=== PATIENT | female | born 1935 | race Caucasian/White ===

== ENCOUNTER → 2017-04-25 | Outpatient (CLI) | payer MEDICARE, OTHER ==
[~2017-04-25] MED LIST: ASPIR 8181 MG PO; BENEFIBER PO; BENTYL 10 MG CA10 MG PO; CARDURA4 MG PO; CARVEDILOL6.25 MG PO; CYMBALTA30 MG PO; FOLIC ACID1 MG PO; FUROSEMIDE PO; GABAPENTIN 100100 MG PO; GINSENG100 MG PO; GLUCOPHAGE500 MG PO; HYDROCODON-ACE1 EAC7 PO; KLOR-CON 10 ER10 MEQ PO; KLOR-CON 1010 MEQ PO; LANTUS SUBQ; LANTUS100 UNIT/M SUBQ; LASIX 40 MG TAB40 M2 PO; LEVAQUIN 500 M500 M2 PO; LIPITOR 20 MG T20 M1 PO; MAG-OX 400 TAB400 M1 PO; MAG-OXIDE400 MG PO; METOLAZONE 2.52.5 M1 PO; MINOXIDIL2.5 MG PO; NOVOLOG100 UNIT/1 SUBQ; OMEPRAZOLE20 M2 PO; PACERONE 200 M200 M1 PO; PLAVIX 75 MG TA75 M1 PO; PRADAXA150 MG PO; PRENATAL VITAM1 EAC2 PO; PRENATAL VITAM1 EAC6 PO; VITAMINC500 PO; ZANTAC 150MG T150 MG PO
== END ==
LOC: M.RAD 08:36
DX: M85.88 Other specified disorders of bone density and structure, other site (principal); I73.9 Peripheral vascular disease, unspecified; I13.0 Hypertensive heart and chronic kidney disease with heart failure and stage 1 through stage 4 chronic kidney disease, or unspecified chronic kidney disease; E11.22 Type 2 diabetes mellitus with diabetic chronic kidney disease; I50.30 Unspecified diastolic (congestive) heart failure; N18.3 Chronic kidney disease, stage 3 (moderate); I21.4 Non-ST elevation (NSTEMI) myocardial infarction; I25.110 Atherosclerotic heart disease of native coronary artery with unstable angina pectoris; I48.2 Chronic atrial fibrillation; E66.9 Obesity, unspecified; E78.5 Hyperlipidemia, unspecified; K21.9 Gastro-esophageal reflux disease without esophagitis; K57.90 Diverticulosis of intestine, part unspecified, without perforation or abscess without bleeding; Z90.710 Acquired absence of both cervix and uterus; Z68.32 Body mass index [BMI] 32.0-32.9, adult

== ENCOUNTER → 2017-06-13 | Outpatient (CLI) | payer MEDICARE, OTHER | LOC: M.RAD 13:45 | DX: J40 Bronchitis, not specified as acute or chronic (principal); I25.10 Atherosclerotic heart disease of native coronary artery without angina pectoris; I12.9 Hypertensive chronic kidney disease with stage 1 through stage 4 chronic kidney disease, or unspecified chronic kidney disease; E11.22 Type 2 diabetes mellitus with diabetic chronic kidney disease; N18.3 Chronic kidney disease, stage 3 (moderate); I73.9 Peripheral vascular disease, unspecified ==

== ENCOUNTER → 2017-06-20 | Outpatient (CLI) | payer MEDICARE, OTHER ==
--- NOTE | 2017-06-20 10:14 | 2DMMODE ---
[place] [address] 2 D/M-MODE ECHOCARDIOGRAM Name: ROMIE APARICIO Room: [facility]#: [id number] Admission: 06/20/17 Attend Phys: Ganesh Joaquin, Discharge: Date of : 33 Date of Service: 06/20/17 1014 Report #: [id number] THIS REPORT FOR: //name// APPROVED REPORT Study performed: 06/20/2017 08:50:39 EXAM: Comprehensive 2D, Doppler, and color-flow Echocardiogram Patient Location: Out-Patient Status: routine BSA: 1.72 HR: 63 bpm BP: 122/55 mmHg Other Information Study Quality: Good Indications CAD 2D Dimensions LVEF(%): 70.00 (>50%) IVSd: 14.44 (7-11mm) LVOT Diam: 20.87 (18-24mm) LVDd: 34.72 mm PWd: 13.13 (7-11mm) Ascending Ao: 26.75 (22-36mm) LVDs: 21.32 (25-40mm) Aortic Root: 25.27 mm Stratton's LVEF: 70.00 % Volumes Left Atrial Volume (Systole) LA ESV Index: 27.40 mL/m2 Aortic Valve AoV Peak Shaun.: 1.46 m/s AO Peak Gr.: 8.53 mmHg LVOT Max P.04 mmHg AO Mean Gr.: 4.23 mmHg LVOT Mean P.50 mmHg LVOT Max V: 1.12 m/s AO V2 VTI: 30.56 cm LVOT Mean V: 0.72 m/s MIGUEL ANGEL (VTI): 3.14 cm2 LVOT V1 VTI: 28.09 cm Mitral Valve MV Decel. Time: 201.18 ms MV PHT: 58.34 ms [facility] [address] [place] [address] 2 D/M-MODE ECHOCARDIOGRAM Name: ROMIE APARICIO Room: [facility]#: [id number] Admission: 06/20/17 Attend Phys: Ganesh Joaquin, Discharge: Date of : 33 Date of Service: 06/20/17 1014 Report #: [id number] MVA (PHT): 3.77 cm2 TDI Medial E' Shaun.: 0.08 m/s Lateral E' Shaun.: 0.08 m/s Pulmonary Valve PV Peak Shaun.: 1.16 m/s PV Peak Gr.: 5.34 mmHg Tricuspid Valve TR Peak Gr.: 31.24 mmHg RVSP: 36.24 mmHg Left Ventricle The left ventricle is normal size. There is normal LV segmental wall motion. Mild concentric left ventricular hypertrophy. Left ventricular systolic function is normal. LVEF is 65-70%. The left ventricular diastolic function is normal. Right Ventricle The right ventricle is normal size. The right ventricular systolic function is normal. Atria Left atrium is mildly dilated. Right atrium is moderately dilated. Aortic Valve Aortic valve is mildly calcified. Mild aortic regurgitation. There is no aortic valvular stenosis. Mitral Valve There is mitral annular calcification. There is no mitral valve regurgitation noted. No evidence of mitral valve stenosis. Tricuspid Valve The tricuspid valve is normal in structure. Mild tricuspid regurgitation. Moderate pulmonary hypertension. The RVSP is 65-70 mmHg. Pulmonic Valve The pulmonary valve is normal in structure. Moderate pulmonic regurgitation. Great Vessels The aortic root is normal in size. IVC is dilated and collapses <50% [place] [address] 2 D/M-MODE ECHOCARDIOGRAM Name: ROMIE APARICIO [id number] Admission: 06/20/17 Attend Phys: Ganesh Joaquin, Discharge: Date of : 33 Date of Service: 06/20/17 1014 Report #: [id number] Pericardium Trace pericardial effusion. <Conclusion> The left ventricle is normal size. Mild concentric left ventricular hypertrophy. Left ventricular systolic function is normal. LVEF is 65-70%. The left ventricular diastolic function is normal. Left atrium is mildly dilated. Right atrium is moderately dilated. Aortic valve is mildly calcified. Mild aortic regurgitation. There is mitral annular calcification. Mild tricuspid regurgitation. Moderate pulmonary hypertension. The RVSP is 65-70 mmHg. Moderate pulmonic regurgitation. Trace pericardial effusion. <ELECTRONICALLY SIGNED> By: Ganesh Joaquin MD, FACC 06/20/17 1014 1014 1014 Ganesh Joaquin MD, FACC /INF
== END ==
LOC: M.CRD 08:19
DX: I08.3 Combined rheumatic disorders of mitral, aortic and tricuspid valves (principal); I25.10 Atherosclerotic heart disease of native coronary artery without angina pectoris; I27.20 Pulmonary hypertension, unspecified

== ENCOUNTER → 2017-07-24 | Outpatient (CLI) | payer MEDICARE, OTHER ==
[2017-07-24 10:05] LABS: ABSOLUTE BASOPHILS 0.1 thou/uL (0.0-0.2); ABSOLUTE EOSINOPHILS 0.2 thou/uL (0.0-0.7); ABSOLUTE LYMPHOCYTES 1.1 thou/uL (0.8-5.3); ABSOLUTE MONOCYTES 0.8 thou/uL (0.0-1.2); ABSOLUTE NEUTROPHILS 5.1 thou/uL (1.6-8.1); BASOPHILS 0.7 %; EOSINOPHILS 3.4 %; HEMATOCRIT 34.2 % (37.0-47.0); HEMOGLOBIN 11.5 gm/dL (12.0-15.0); LYMPHOCYTES 15.6 %; MCH 30.7 pg (26.0-34.0); MCHC 33.7 g/dL (28.0-37.0); MONOCYTES 10.5 %; MPV 9.5 fl. (7.2-11.1); NUCLEATED RBCS 0 /100WBC; PLATELET COUNT* 109 thou/uL (150-400); POLYS 69.8 %; RBC 3.76 mil/uL (4.20-5.00); RDW-CV 13.6 % (10.5-14.5); WBC 7.3 thou/uL (4.0-11.0)
[2017-07-24 10:26] LABS: ALBUMIN 3.5 g/dL (3.4-5.0); ALKALINE PHOSPHATASE 105 U/L (46-116); ANION GAP 8 mmol/L (7-16); BUN 54 mg/dL (7-18); CALCIUM 9.2 mg/dL (8.5-10.1); CHLORIDE 99 mmol/L (98-107); CHOLESTEROL 118 mg/dL (<200); CO2 31 mmol/L (21-32); CREATININE 1.3 mg/dL (0.6-1.3); GLUCOSE 127 mg/dL (70-99); HDL CHOLESTEROL 51 mg/dL (>40); LDL CHOLESTEROL 62 mg/dL (<100); PHOSPHORUS* 3.6 mg/dL (2.5-4.9); POTASSIUM 3.6 mmol/L (3.5-5.1); SGOT 28 U/L (15-37); SGPT 27 U/L (30-65); SODIUM 138 mmol/L (136-145); TC:HDL 2.3 Ratio (Not establshd); TOTAL BILIRUBIN 0.8 mg/dL (<0.1-1.0); TOTAL PROTEIN 7.2 g/dL (6.4-8.2); TRIGLYCERIDE 25 mg/dL (<150); VLDL 5 mg/dL (<40)
[2017-07-24 10:28] LABS: SERUM ASSESSMENT Clear
[2017-07-25 02:07] LABS: eGFR IF AFRICAN AMERICAN 46 (>59)
[2017-07-25 03:08] LABS: GLYCOHEMOGLOBIN (HGB A1C) 6.8 % (4.8-5.6)
[2017-07-25 06:06] LABS: PARATHYROID HORMONE 162 pg/mL (15-65)
== END ==
LOC: M.LAB 09:41
PROVIDERS: Internal Medicine Nephrology
DX: I12.9 Hypertensive chronic kidney disease with stage 1 through stage 4 chronic kidney disease, or unspecified chronic kidney disease (principal); E11.9 Type 2 diabetes mellitus without complications; I73.9 Peripheral vascular disease, unspecified; N18.3 Chronic kidney disease, stage 3 (moderate)

== ENCOUNTER → 2017-08-06 | Outpatient (CLI) | payer MEDICARE, OTHER ==
[2017-08-06 13:42] LABS: CALCIUM 9.8 mg/dL (8.5-10.1); CREATININE 1.4 mg/dL (0.6-1.3); POTASSIUM 3.5 mmol/L (3.5-5.1)
== END ==
LOC: M.LAB 13:05
PROVIDERS: Family Medicine
DX: N18.3 Chronic kidney disease, stage 3 (moderate) (principal)

== ENCOUNTER → 2017-12-13 | Outpatient (CLI) | payer MEDICARE, OTHER ==
[~2017-12-13] MED LIST changes: +MIRALAX17 GM PO
[2017-12-13 08:58] LABS: ABSOLUTE BASOPHILS 0.1 thou/uL (0.0-0.2); ABSOLUTE EOSINOPHILS 0.3 thou/uL (0.0-0.7); ABSOLUTE LYMPHOCYTES 1.1 thou/uL (0.8-5.3); ABSOLUTE MONOCYTES 0.8 thou/uL (0.0-1.2); ABSOLUTE NEUTROPHILS 5.6 thou/uL (1.6-8.1); BASOPHILS 0.9 %; EOSINOPHILS 4.1 %; LYMPHOCYTES 14.1 %; MCH 30.6 pg (26.0-34.0); MCHC 33.3 g/dL (28.0-37.0); MONOCYTES 9.9 %; MPV 9.4 fl. (7.2-11.1); NUCLEATED RBCS 0 /100WBC; PLATELET COUNT* 128 thou/uL (150-400); RBC 4.23 mil/uL (4.20-5.00); WBC 7.9 thou/uL (4.0-11.0)
[2017-12-13 09:18] LABS: CHOLESTEROL 117 mg/dL (<200); HDL CHOLESTEROL 41 mg/dL (>40); LDL CHOLESTEROL 68 mg/dL (<100); TC:HDL 2.9 Ratio (Not establshd); TRIGLYCERIDE 41 mg/dL (<150); VLDL 8 mg/dL (<40)
[2017-12-13 09:26] LABS: SERUM ASSESSMENT Clear
[2017-12-13 09:33] LABS: ALKALINE PHOSPHATASE 91 U/L (46-116); ANION GAP 4 mmol/L (7-16); BUN 47 mg/dL (7-18); CALCIUM 9.1 mg/dL (8.5-10.1); CHLORIDE 102 mmol/L (98-107); CO2 34 mmol/L (21-32); CREATININE 1.2 mg/dL (0.6-1.3); GLUCOSE 110 mg/dL (70-99); POTASSIUM 3.3 mmol/L (3.5-5.1); SGOT 23 U/L (15-37); SGPT 22 U/L (30-65); SODIUM 140 mmol/L (136-145); TOTAL BILIRUBIN 0.7 mg/dL (<0.1-1.0); TOTAL PROTEIN 6.5 g/dL (6.4-8.2)
[2017-12-14 03:07] LABS: GLYCOHEMOGLOBIN (HGB A1C) 7.1 % (4.8-5.6)
== END ==
LOC: M.LAB 08:39
PROVIDERS: Family Medicine
DX: I12.9 Hypertensive chronic kidney disease with stage 1 through stage 4 chronic kidney disease, or unspecified chronic kidney disease (principal); E11.22 Type 2 diabetes mellitus with diabetic chronic kidney disease; N18.3 Chronic kidney disease, stage 3 (moderate); I25.10 Atherosclerotic heart disease of native coronary artery without angina pectoris

== ENCOUNTER → 2018-01-03 | Outpatient (CLI) | payer MEDICARE, OTHER ==
[2018-01-03 15:07] LABS: ABSOLUTE BASOPHILS 0.1 thou/uL (0.0-0.2); ABSOLUTE EOSINOPHILS 0.2 thou/uL (0.0-0.7); ABSOLUTE LYMPHOCYTES 1.2 thou/uL (0.8-5.3); ABSOLUTE MONOCYTES 0.6 thou/uL (0.0-1.2); ABSOLUTE NEUTROPHILS 4.3 thou/uL (1.6-8.1); EOSINOPHILS 3.5 %; HEMATOCRIT 37.2 % (37.0-47.0); HEMOGLOBIN 12.5 gm/dL (12.0-15.0); LYMPHOCYTES 18.9 %; MCH 30.6 pg (26.0-34.0); MCHC 33.5 g/dL (28.0-37.0); MCV 91.5 fL (80.0-100.0); MONOCYTES 9.7 %; MPV 9.5 fl. (7.2-11.1); NUCLEATED RBCS 0 /100WBC; PLATELET COUNT* 138 thou/uL (150-400); POLYS 66.9 %; RBC 4.07 mil/uL (4.20-5.00); RDW-CV 13.1 % (10.5-14.5); WBC 6.4 thou/uL (4.0-11.0)
[2018-01-03 15:20] LABS: ALBUMIN 3.2 g/dL (3.4-5.0); CALCIUM 9.6 mg/dL (8.5-10.1); CREATININE 1.2 mg/dL (0.6-1.3); PHOSPHORUS* 3.3 mg/dL (2.5-4.9); POTASSIUM 3.6 mmol/L (3.5-5.1)
[2018-01-04 05:11] LABS: eGFR IF AFRICAN AMERICAN 56 (>59)
[2018-01-04 08:08] LABS: PARATHYROID HORMONE 137 pg/mL (15-65)
== END ==
LOC: M.LAB 14:47
PROVIDERS: Internal Medicine Nephrology
DX: E11.22 Type 2 diabetes mellitus with diabetic chronic kidney disease (principal); N18.3 Chronic kidney disease, stage 3 (moderate); I48.2 Chronic atrial fibrillation; K57.90 Diverticulosis of intestine, part unspecified, without perforation or abscess without bleeding; I50.9 Heart failure, unspecified; Z90.710 Acquired absence of both cervix and uterus

== ENCOUNTER 2018-03-12 12:30 | Inpatient (IN) | payer MEDICARE, OTHER ==
[~2018-03-12] VITALS: Ht 154.9 cm; Wt 80.3 kg
[~2018-03-12 12:30] MED LIST changes: -LASIX 40 MG TAB40 M2 PO; +LASIX 80 MG TAB80 MG PO; -MIRALAX17 GM PO
[2018-03-12 12:41] VITALS: BP 91/31
--- NOTE | 2018-03-12 12:47 | NUR ---
PT LIVES WITH DAUGHTER, SON IN LAW DROPPED PT OFF
[2018-03-12 13:16] LABS: HEMOGLOBIN 11.7 gm/dL (12.0-15.0); MCH 29.9 pg (26.0-34.0); MCHC 33.4 g/dL (28.0-37.0); MCV 89.6 fL (80.0-100.0); MPV 8.5 fl. (7.2-11.1); NUCLEATED RBCS 0 /100WBC; PLATELET COUNT* 240 thou/uL (150-400); RBC 3.91 mil/uL (4.20-5.00); RDW-CV 13.5 % (10.5-14.5); WBC 9.9 thou/uL (4.0-11.0)
[2018-03-12 13:21] LABS: ANION GAP 7 mmol/L (7-16); BUN 54 mg/dL (7-18); CALCIUM 8.6 mg/dL (8.5-10.1); CHLORIDE 92 mmol/L (98-107); CO2 29 mmol/L (21-32); CREATININE 1.5 mg/dL (0.6-1.3); GLUCOSE 189 mg/dL (70-99); POTASSIUM 3.5 mmol/L (3.5-5.1); SODIUM 128 mmol/L (136-145)
[2018-03-12 13:26] LABS: APTT 28.3 Seconds (25.0-31.3); INR 1.1; PROTIME 11.7 Seconds (9.20-11.50)
[2018-03-12 13:29] LABS: BE 2.5 mmol/L (-2 to +3); HCO3 26.8 mmol/L (22.0-26.0); PCO2 40.5 mmHg (35.0-45.0); PO2 71.2 mmHg (75.0-100.0); pH 7.439 (7.340-7.450)
[2018-03-12 13:32] LABS: ALBUMIN 2.2 g/dL (3.4-5.0); ALKALINE PHOSPHATASE 97 U/L (46-116); NT-PRO BRAIN NAT PEPTIDE 11341 pg/mL (<300); SGOT 28 U/L (15-37); SGPT 22 U/L (30-65); TOTAL BILIRUBIN 0.4 mg/dL (<0.1-1.0); TOTAL PROTEIN 5.9 g/dL (6.4-8.2); TROPONIN-I LEVEL <0.06 ng/mL (<0.06)
[2018-03-12 13:55] LABS: ABSOLUTE LYMPHOCYTES 0.7 thou/uL (0.8-5.3); ABSOLUTE MONOCYTES 0.9 thou/uL (0.0-1.2); ABSOLUTE NEUTROPHILS 8.3 thou/uL (1.6-8.1); PLATELET ESTIMATE ADEQUATE
[2018-03-12 16:02] VITALS: BP 134/48
[2018-03-12 16:15] VITALS: BP 163/61
--- NOTE | 2018-03-12 16:27 | EKG ---
[place] [address] ELECTROCARDIOGRAM REPORT Name: ROMIE APARICIO Room: [address] ADM IN M.R.#: [id number] Admission: 03/12/18 Attend Phys: Giovana Kim Discharge: Date of : 33 Report #: [id number] THIS REPORT FOR: //name// [facility] ED Test Date: 2018-03-12 Test Time: 12:58:44 Pat Name: ROMIE APARICIO Department: Room: [facility] Gender: F Zinc Miner: SHAYY : 1935 Requested By: Devonte Montano Order Number: [id number] MD: Ganesh Joauqin Measurements Intervals [place] Rate: 49 P: AL: QRS: 116 QRSD: 107 T: 143 QT: 537 QTc: 485 Interpretive Statements Atrial fibrillation Right ventricular hypertrophy Abnormal T, consider ischemia, lateral leads Compared to ECG 01/17/2017 12:10:53 T-wave abnormality now present Possible ischemia now present Electronically Signed On 03-12-2018 16:27:23 GLAZIER APPRENTICE by Ganesh Joaquin [email or web address] <ELECTRONICALLY SIGNED> By: Ganesh Joaquin MD, FACC 03/12/18 1627 1258 1258 Ganesh Joaquin MD, FACC /EPI
--- NOTE | 2018-03-12 18:03 | NUR ---
PT ADMITTED TO UNIT AROUND 1630 PT IS ALERT AND ORIENTED X 4 PT DENIES PAIN OR SOA ON 2L/NC, PT IS UP WITH ASSIST X 1 PT IS NOT A FALL RISK WILL CALL APPROPRIATELY FOR ASSISTANCE DUE TO WEAKNESS CARDIOLOGY CONSULTED PT HAS BILAT 3+ EDEMA LOWER EXTREMITIES PT STATES " I AHVE GAINED 12 POUNDS IN 10 DAYS" PT GIVEN LASIX IN ER CARDIOLOGY ORDERED 2000ML FLUID RESTRICTION ON PT, PT IS AFIB ON THE MONITOR, WILL CONTINUE TO MONITOR
[2018-03-12 18:05] LABS: CALCIUM 8.9 mg/dL (8.5-10.1); CREATININE 1.4 mg/dL (0.6-1.3); MAGNESIUM 1.8 mg/dL (1.8-2.4); POTASSIUM 3.3 mmol/L (3.5-5.1)
[2018-03-12 20:00] VITALS: BP 159/57
[2018-03-12 23:44] VITALS: BP 131/56
[2018-03-12 23:47] VITALS: BP 96/41
--- NOTE | 2018-03-13 03:15 | NUR ---
PT ALERT ORIENTED. O2 AT 2 NC. UP TO BR WITH ONE PERSON STAND BY ASSIST. TELEMETRY SHOWS SR. DENIES PAIN. PT C/O ACID REFLUX. TUMS ORDERED AND PANTOPRAZOLE ORDERED. WILL CONTINUE TO MONITOR.
[2018-03-13 04:00] VITALS: BP 113/48
[2018-03-13 04:40] LABS: CALCIUM 8.7 mg/dL (8.5-10.1); CREATININE 1.4 mg/dL (0.6-1.3); POTASSIUM 3.6 mmol/L (3.5-5.1); TOTAL BILIRUBIN 0.4 mg/dL (<0.1-1.0); TOTAL PROTEIN 5.5 g/dL (6.4-8.2)
[2018-03-13 08:00] VITALS: BP 102/43
[2018-03-13 11:43] VITALS: BP 124/43
--- NOTE | 2018-03-13 11:46 | NUR ---
MET WITH PT TO DISCUSS HOME SITUATION/DC PLANNING. PT LIVES WITH DTR AND HER FAMILY. STATES THEY RECENTLY BUILT A NEW HOUSE AND ARE IN THE PROCESS OF MOVING THERE. PT IS FAIRLY INDEPENDENT AT HOME. HAS NEW RAISED TOILET AND SHOWER BENCH IN NEW HOME. SHE LIVES IN THE 'UPSTAIRS'. DTR HAS IN HOME DAYCARE. CHERELLE WORKS SHIFT WORK. PT STATES SHE IS NORMALLY ABLE TO DO SHOPPING WEEKLY WITH DTR AND THE COOKING, VOICED CONCERN ABOUT MANAGING THOSE NOW WITH CHANGES IN DIET. PT HAS HAD HH WITH [facility] IN THE PAST AND WOULD LIKE TO USE THEM AGAIN. VOICED THAT SHE HAS BEEN STRUGGLING WITH WEAKNESS AND FATIGUE. SARA/JOSEPHINE IS HER DPOA. WILL FOLLOW
[2018-03-13 16:07] VITALS: BP 117/52
--- NOTE | 2018-03-13 17:45 | NUR ---
PT CARE ASSUMED AFTER REPORT. ASSESSMENT COMPLETE. AFIB ON MONITOR. PT WITH + BC, GRAM+ COCCI. DR OVALLE NOTIFIED. VANC GIVEN PER ORDER. SSI INITIATED PER ORDER. PT UP WITH STB ASSIST TO BATHROOM. DENIES PAIN. PARTIALLY PROGRESSING TOWARDS GOALS.
[2018-03-13 20:00] VITALS: BP 110/74
[2018-03-14] VITALS: BP 119/35
[2018-03-14 04:00] VITALS: BP 119/42
--- NOTE | 2018-03-14 05:47 | NUR ---
ASSUMED CARE OF PT AFTER REPORT AT 1930. PT A&OX4. VSS. PHYSICAL ASSESSMENT COMPLETED AND CHARTED. PT ON O2 AT 2L WITH 95% O2 SAT. PT TRACING AFIB ON TELE. PT UP STANDBY TO RESTROOM. DENIES ANY PAIN OR DISCOMFORT. MAINTAINED ON FLUID RESTRICTION. COMMUNICATES UNDERSTANDING. CALL LIGHT WITHIN REACH.
[2018-03-14 07:26] LABS: CALCIUM 8.7 mg/dL (8.5-10.1); CREATININE 1.4 mg/dL (0.6-1.3); MAGNESIUM 1.8 mg/dL (1.8-2.4); POTASSIUM 3.3 mmol/L (3.5-5.1)
[2018-03-14 07:54] VITALS: BP 119/41
--- NOTE | 2018-03-14 09:19 | NUR ---
ASSUMED CARE OF PT THIS AM AROUND 0715- BLUEPRINTING MACHINE OPERATOR IN PLACE ORDERED, TRACING A-FIB- UPON ASSESSMENT PT NOTED TO BE RESTING IN BED- PT A&O X4- CONTINENT OF BOWEL AND BLADDER- LIMITED ASSIST X1 WITH TRANSFERS- LCTA, RESP EVEN AND [id number] DRY COUGH REPORTED- VSS, O2 SAT 95% ON 2L VIA NC-ABDOMEN SOFT/ROUND/NON-TENDER, BS X 4 QUADS- LAST BM REPORTED 03/13/18- GOOD PO INTAKE NOTED THIS AM WITH BREAKFAST, BS MONITORED ORDERED- IV NOTED TO LEFT WRIST INTACT AND SL- 2+ BLE EDEMA NOTED. LEG ELEVATION IN PLACE- BLOOD CULTURES REMAIN NEGATIVE- PT DENIES ANY C/O PAIN/DISCOMFORT THIS AM- CALL LIGHT AND PERSONAL BELONGINGS WITH IN REACH- HOURLY ROUNDS IN PLACE R/T SAFETY/NEEDS- ALL NEEDS MET AT THIS TIME-WCTM
[2018-03-14 11:41] VITALS: BP 126/40
[2018-03-14 16:04] VITALS: BP 113/45
--- NOTE | 2018-03-14 16:37 | CON ---
[address] [address] CONSULTATION Name: ROMIE APARICIO Room: [address] IN M.R.#: [id number] Admission: 03/12/18 Attend Phys: Giovana Kim Discharge: Date of : 33 Report #: [id number] THIS REPORT FOR: //name// CC: Sagar Clemens DO Azul Pearson TYPE OF REPORT: Cardiology consultation. INDICATION: Eeorq-ly-fcajmnt diastolic heart failure. HISTORY OF PRESENT ILLNESS: The patient is a very pleasant 82-year-old white female who is well known to myself. She has chronic atrial fibrillation. She is not anticoagulated due to bleeding risk. Lately, her heart rate appears to have been slow. She is on a low dose of carvedilol, which had been for rate control in the past. She has had hypertension that has been difficult to control and is on multiple agents presently with adequate control presently. She has a history of coronary artery disease with percutaneous coronary intervention of the right coronary artery in October 2015. At that time, she had nonocclusive stenoses noted elsewhere. She has preserved left ventricular systolic function. She has moderate nonocclusive carotid vascular disease without sign or symptom of TIA or stroke. She has had increasing volume overload over the past 2-3 weeks to the point where she is not having significant dyspnea on exertion. She is not having orthopnea. She denies chest pain. She has significant peripheral edema. PAST MEDICAL HISTORY: 1. Chronic diastolic heart failure. 2. Chronic atrial fibrillation. 3. Coronary artery disease with percutaneous coronary intervention of the right coronary artery in October 2015. 4. Carotid vascular disease. 5. Essential hypertension. 6. Hyperlipidemia. 7. Moderate pulmonary hypertension. PAST SURGICAL HISTORY: 1. Cataract extraction. 2. Esophageal dilatation. 3. Femoral bypass procedure. 4. [place] [address] CONSULTATION Name: ROMIE APARICIO Room: [address]#: [id number] Admission: 03/12/18 Attend Phys: Giovana Kim Discharge: Date of : 33 Report #: [id number] FAMILY HISTORY: The patient's mother and father both had heart disease. SOCIAL HISTORY: The patient quit smoking over 40 years ago. She does not drink alcohol. ALLERGIES: SULFA. CURRENT MEDICATIONS: Aspirin 81 mg daily, atorvastatin 20 mg daily, carvedilol 6.25 mg b.i.d., Plavix 75 mg daily, Cardura 4 mg daily in the evening, Cymbalta 30 mg daily, folate 1 mg daily, furosemide 120 mg daily, gabapentin 100 mg at bedtime, insulin 3 units subcutaneously a.c. and at bedtime, Lantus 12 units subcutaneously at bedtime, magnesium oxide 400 mg daily, metolazone 2.5 mg 3 times weekly, minoxidil 2.5 mg t.i.d., potassium chloride 10 mEq 2 tablets daily, vitamin 2 tablets daily and Zantac 150 mg b.i.d. REVIEW OF SYSTEMS: The patient reports dyspnea on exertion, lower extremity edema, type 2 diabetes mellitus, remote history of blood in the stool, urinary tract infection, history of anemia, mild arthritis and reading glasses without acute visual loss. Otherwise, 14-point review of systems was unremarkable. PHYSICAL EXAMINATION: VITAL SIGNS: Stable. Blood pressure 163/61 and pulse currently 49. GENERAL: This is a pleasant lady, in no distress. Mood and affect appropriate. HEENT: Extraocular muscles intact. Mucous membranes are moist. NECK: Examination of the neck shows no jugular venous distention. I do not appreciate carotid bruit. CHEST: Reveals clear lung sargent. CARDIOVASCULAR: Reveals an irregularly irregular rhythm. Rate is somewhat slow. I do not appreciate gallop or murmur. ABDOMEN: Reveals normal bowel sounds. The abdomen is soft and nontender. EXTREMITIES: Shows 2-3+ pitting edema to above the knees bilaterally. SKIN: Dry. RADIOLOGICAL DATA: A 12-lead EKG shows atrial fibrillation with a slow ventricular response rate. There is nonspecific intraventricular conduction delay. No acute ST or T-wave abnormalities are noted. Chest x-ray shows CHF, cardiomegaly and interstitial pulmonary edema. LABORATORY DATA: Labs are reviewed. Sodium 128, potassium 3.5, chloride 92, bicarbonate 29, BUN 54, creatinine 1.5 and serum glucose 189. LFTs within normal limits. Troponin less than 0.06. NT-pro-BNP 11,341. Recent cholesterol profile shows total cholesterol 117, triglycerides 41, HDL 41 and LDL 68. Coags are within normal limits. White blood cell count 9.9; hemoglobin 11.7 and platelet count 240,000. [facility] [address] [place] [address] CONSULTATION Name: ROMIE APARICIO Room: M.228-P ADM IN M.R.#: [id number] Admission: 03/12/18 Attend Phys: Giovana Kim Discharge: Date of : 34 Report #: [id number] IMPRESSION AND RECOMMENDATIONS: 1. Oyyso-es-ppfbast heart failure, likely diastolic. Continue diuresis with IV Lasix and metolazone daily. We will follow up labs in a.m. 2. Atrial fibrillation, rate is too slow presently. Discontinuing carvedilol. May need to increase minoxidil for better blood pressure control. She is not anticoagulated due to bleeding problems in the past. 3. Hypertension. Blood pressure moderately elevated at present. We will make adjustments as needed while in hospital. 4. Diabetes per primary physician. 5. Hyperlipidemia, at goal on current statin dose. 6. Coronary artery disease, presently stable. She does not have any symptoms to suggest angina or acute coronary syndrome. 7. Acute renal insufficiency with chronic renal insufficiency. We will need to follow renal function closely while we diurese. <ELECTRONICALLY SIGNED> By: Ganesh Joaquin MD, FACC 03/14/18 1637 1715 [id number] Joaquin MD, FACC /nt
--- NOTE | 2018-03-14 16:55 | NUR ---
PT CURRENTLY RESTING IN BED- GLOBAL PROFESSIONAL IN PLACE ORDERED, TRACING A-FIB- PT NOTED TO BE WORKING WITH THERAPIES PRESCIBED- UP TO CHAIR WITH MEALS, TOLERATING WELL- IV TO LEFT WRIST INTACT AND SL- IV VANC GIVEN THIS SHIFT PRESCIBED- K+ REPLACED THIS SHIFT PER PROTOCOL WITH REDRAW SCHEDUKLED FOR 183- HERE TO ASSESS THIS SHIFT WITH ORDERS NOTED TO INCREASE LASIX 120MG BID- FELICITY HOSE PLACED ORDERED TO BLE- GOOD PO INTAKE NOTED THIS SHIFT WITH MEALS- DENIES ANY C/O PAIN/DISCOMFORT AT THIS TIME- CALL LIGHT AND PERSONAL BELONGINGS WITH IN REACH- MAKES NEEDS KNOWN- ALL NEEDS MET AT THIS TIME-WCTM
[2018-03-14] MEDS ORDERED: MIRALAX17 GM PO (19:36)
[2018-03-14 20:00] VITALS: BP 100/30
[2018-03-15] VITALS (7 sets, daily range): BP systolic 115–134; BP diastolic 27–45
[2018-03-15 05:01] LABS: HEMATOCRIT 31.2 % (37.0-47.0); HEMOGLOBIN 10.5 gm/dL (12.0-15.0); MCHC 33.5 g/dL (28.0-37.0); MCV 89.8 fL (80.0-100.0); MPV 8.7 fl. (7.2-11.1); RBC 3.48 mil/uL (4.20-5.00); RDW-CV 13.8 % (10.5-14.5); WBC 8.6 thou/uL (4.0-11.0)
--- NOTE | 2018-03-15 05:06 | NUR ---
ASSUMED CARE OF PT AFTER REPORT AT 1930. PT A&OX4. VSS. PHYSICAL ASSESSMENT COMPLETED AND CHARTED. PT ON RA WITH 94% O2 SAT. PT TRACING AFIB/PVC ON TELE. PT UP STANDBY ASSIST TO RESTROOM. DENIES ANY PAIN OR DISCOMFORT. HOURLY ROUNDING OBSERVED. HS REST & SAFETY GOALS ACHIEVED. CALL LIGHT WITHIN REACH. BED IN LOW POSITION. BED ALARM ON.
[2018-03-15 05:22] LABS: CALCIUM 8.7 mg/dL (8.5-10.1); CREATININE 1.3 mg/dL (0.6-1.3); MAGNESIUM 1.7 mg/dL (1.8-2.4); POTASSIUM 3.6 mmol/L (3.5-5.1)
--- NOTE | 2018-03-15 09:11 | NUR ---
RECEIVED REPORT FROM JAY AND ASSUMED CARE OF PT @ 3290.PT IS A/O X4,VSS,TRACING AFIB ON THE MONITOR.ASSESSMENT CHARTED.IV PATENT AND SALINE LOCKED.PT IS CALM AND COOPERATIVE WITH NO C/O PAIN AT TIME OF ASSESSMENT.PT IS UP WITH SBA TO BATHROOM. PT LEFT RESTING IN RECLINER WITH CALL LIGHT AND FALL PRECAUTIONS IN PLACE.WILL CONTINUE TO MONITOR.
--- NOTE | 2018-03-15 13:43 | NUR ---
CONTINUE TO FOLLOW, MET WITH PT. SHE STILL WOULD LIKE TO HAVE HH AT [place], FEELS IT'LL BE HELPFUL WITH HER CHF AND FOR DIET REINFORCEMENT. PT HOPES TO GO HOME OVER WEEKEND. DISCUSSED AGENCIES WITH HER AGAIN AND SHE HAS NO PREFERENCE, CHOSE [facility] THIS TIME. CALLED AND FAXED INITIAL REFERRAL TO [facility]. THEY WILL NEED CALLED AND ORDERS FAXED AT [facility] [phone] FAX [phone]
--- NOTE | 2018-03-15 17:03 | NUR ---
VSS,CARDIAC MONITORING IN PLACE WITH NO CHANGES.PT ON ROOM AIR.PT PROGRESSING TOWARDS GOALS.NO C/O PAIN.IV PATENT AND SALINE LOCKED.NEW FELICITY VILLALOBOS ORDERED AND PUT ON PT.PT AMBULATED IN HALLWAY AND WORKED ON STAIRS WITH PHYSICAL THERAPY.HOURLY ROUNDING COMPLETED FOR PT SAFETY.CALL LIGHT AND FALL PRECAUTIONS IN PLACE.WILL CONTINUE TO MONITOR FOR DURATION OF SHIFT.
[2018-03-16] VITALS: BP 124/79
[2018-03-16 04:00] VITALS: BP 127/40
--- NOTE | 2018-03-16 04:40 | NUR ---
PT ON ROOM AIR AND RUNNING AFLUTTER AND AFIB WITH PVC ON CASE MANAGEMENT DIRECTOR. PT FELICITY HOSE REMOVED TO SLEEP. PT ON 2000 ML FLUID RESTRICTION. PT AXO X4 AND UP STANDBY. NO C/O OF PAIN AT THIS TIME. HOURLY ROUNDING COMPLETED. WILL CONTINUE TO MONITOR.
[2018-03-16 05:06] LABS: CALCIUM 8.9 mg/dL (8.5-10.1); CREATININE 1.3 mg/dL (0.6-1.3); MAGNESIUM 1.7 mg/dL (1.8-2.4); POTASSIUM 3.2 mmol/L (3.5-5.1)
[2018-03-16 08:00] VITALS: BP 112/41
--- NOTE | 2018-03-16 10:23 | NUR ---
RECEIVED REPORT FROM JERMAINE AND ASSUMED CARE OF PT @ 3801.PT IS A/O X4,BP SLIGHTLY LOW @ 112/41.TRACING AFIB WITH PVC ON THE MONITOR.ASSESSMENT CHARTED.PT IS CALM AND COOPERATIVE WITH NO C/O PAIN.PT LEFT RESTING IN BED WITH CALL LIGHT AND FALL PRECAUTIONS IN PLACE.WILL CONTINUE TO MONITOR.
[2018-03-16 12:00] VITALS: BP 161/55
[2018-03-16 16:00] VITALS: BP 137/47
--- NOTE | 2018-03-16 17:34 | NUR ---
VSS,CARDIAC MONITORING IN PLACE WITH NO CHANGES.PT REMAINS ON ROOM AIR.NO C/O PAIN.ELECTROLYTE REPLACEMENT PROTOCOL FOLLOWED.NEW IV INSERTED.IV PATENT AND SALINE LOCKED.IV ANTIBIOTICS GIVEN.PT PROGRESSING TOWARDS GOALS.PT INFORMED OF PLAN OF CARE AND COMMUNICATES UNDERSTANDING.PT WORKED WITH PHYSICAL THERAPY AND AMBULATED IN HALLWAY.HOURLY ROUNDING COMPELTED FOR PT SAFETY.CALL LIGHT AND FALL PRECAUTIONS IN PLACE.WILL CONTINUE TO MONITOR FOR DURATION OF SHIFT.
[2018-03-16 20:00] VITALS: BP 92/27
[2018-03-17] VITALS: BP 120/39
[2018-03-17 04:00] VITALS: BP 125/36
--- NOTE | 2018-03-17 04:31 | NUR ---
ASSUMED CARE OF PT AFTER REPORT AT 1930. PT A&OX4. VSS. PHYSICAL ASSESSMENT COMPLETED AND CHARTED. PT ON RA WITH 96% O2 SAT. PT TRACING AFIB PVC ON TELE. PT UPSTANDBY TO RESTROOM. PT COMPLAINED OF DRY EYES- DR GARCIA INFORMED WITH NEW ORDER. PRESSURE INJURY ON RIGHT BUTTOCKS NOTED. CLEANED AND OPTIFOAM DRESSING APPLIED. PHOTOGRAPH TAKEN. PT RESTED WELL ON BED. HOURLY ROUNDING OBSERVED. CALL LIGHT WITHIN REACH. BED IN LOW POSITION. BED ALARM ON.
[2018-03-17 04:47] LABS: CALCIUM 8.5 mg/dL (8.5-10.1); CREATININE 1.3 mg/dL (0.6-1.3); MAGNESIUM 1.6 mg/dL (1.8-2.4); POTASSIUM 3.3 mmol/L (3.5-5.1)
[2018-03-17 08:07] VITALS: BP 119/31
[2018-03-17 12:00] VITALS: BP 119/43
--- NOTE | 2018-03-17 13:10 | NUR ---
RECEIVED REPORT FROM JAY AND ASSUMED CARE OF PT @ 2052.PT IS A/O X4,VSS,TRACING AFIB ON THE MONITOR.ASSESSMENT CHARTED.IV PATENT AND SALINE LOCKED.THIGH HIGH FELICITY HOSE IN PLACE.PT IS CALM AND COOPERATIVE WITH NO C/O PAIN AT TIME OF ASSESSMENT.PT IS UP SBA TO BATHROOM.PT LEFT RESTING IN RECLINER WITH CALL LIGHT AND FALL PRECAUTIONS IN PLACE.WILL CONTINUE TO MONITOR.
[2018-03-17 16:00] VITALS: BP 127/48
--- NOTE | 2018-03-17 17:58 | NUR ---
VSS,CARDIAC MONITORING IN PLACE WITH NO CHANGES,PT REMAINS ON ROOMA IR.PROGRESSING TOWARDS GOALS.NO C/O PAIN.PICTURES TAKEN OF RIGHT BUTTOCK.THIGH HIGH FELICITY HOSE IN PLACE.IV PATENT AND SALINE LOCKED.PT INFORMED OF PLAN OF CARE AND COMMUNICATES UNDERSTANDING. PT AMBULATED IN ROOM WITH SBA TO BATHROOM.HOURLY ROUNDING COMPLETED FOR PT SAFETY.CALL LIGHT AND FALL PRECAUTIONS IN PLACE.WILL CONTINUE TO MONITOR FOR DURATION OF SHIFT.
[2018-03-17 20:00] VITALS: BP 117/34
[2018-03-17] MEDS ORDERED: PANTOPRAZOLE SO40 M1 PO (20:21)
[2018-03-18 00:10] VITALS: BP 92/36
[2018-03-18 04:00] VITALS: BP 124/42
[2018-03-18 05:03] LABS: CALCIUM 8.8 mg/dL (8.5-10.1); CREATININE 1.3 mg/dL (0.6-1.3); MAGNESIUM 1.6 mg/dL (1.8-2.4); POTASSIUM 3.4 mmol/L (3.5-5.1)
--- NOTE | 2018-03-18 05:26 | NUR ---
ASSUMED CARE OF PT AFTER REPORT AT 1930. PT A&OX4. VSS. PHYSICAL ASSESSMENT COMPLETED AND CHARTED. PT ON RA WITH 93% O2 SAT. PT TRACING AFIB PVC ON TELE. PT UPSTANDBY TO RESTROOM. DENIES ANY PAIN OR DISCOMFORT. PT RESTED WELL ON BED. HOURLY ROUNDING OBSERVED. CALL LIGHT WITHIN REACH. BED IN LOW POSITION. BED ALARM ON.
[2018-03-18 07:59] VITALS: BP 119/32
--- NOTE | 2018-03-18 08:15 | NUR ---
RECEIVED REPORT. ASSUMED CARE OF PT AT 0730. VSS. CARDIAC MONITORING IN PLACE AFIB. AM ASSESSMENT AND VITALS COMPLETED CHARTED. PT ALERT AND ORIETNED. PT ON RA WITH O2 SAT AT 94% PT DENIES ANY PAIN OR DISCOMFORT THIS AM. PT IS SITTING UP IN CHAIR FOR BREAKFAST. DISCUSSED PLAN OF CARE WITH PT. PT COMMUNICATES UNDERSTANDING. CALL LIGHT IS WITHIN REACH. WILL CONTINUE TO MONITOR FOR DURATION OF SHIFT.
[2018-03-18] MEDS ORDERED: METOLAZONE 5 MG5 MG PO (09:29)
--- NOTE | 2018-03-18 11:44 | NUR ---
ORDERS NOTED FOR DC HOME WITH HH. MET WT PT, STILL WANTS TO USES [facility]. DENIES OTHER NEEDS. CALLED AND FAXED DC ORDERS TO [facility]. PT HAPPY TO BE GOING HOME
[2018-03-18 12:00] VITALS: BP 127/38
[2018-03-18 13:08] LABS: MAGNESIUM 1.6 mg/dL (1.8-2.4); POTASSIUM 3.3 mmol/L (3.5-5.1)
[2018-03-18] MEDS ORDERED: ZAROXOLYN 5MG TA5 MG PO (16:03)
--- NOTE | 2018-03-18 17:34 | NUR ---
DISCHARGE ORDERS RECEIVED AND PREPARED. IV AND CARDIAC MONTIORING DISCONTINUED. PT EDUCATED ON DISCHARGE INSTRCTUIONS. ALL QUESTIONS AND CONCERNS ANSWERED AT THIS TIME. PT GIVEN COPY OF DISCHARGE PAPERWORK AND NEW SCRIPTS. ALL PT'S BELONGINGS GATEHRED AND SENT HOME WITH PT. PT ESCORTED OFF UNIT WITH NURSING STAFF. PT LEFT IN PRIVATE VEHICLE.
== END 2018-03-18 17:46 | disposition home health service (06) | DRG 291 ==
LOC: M.ERS 12:30 → M.2W 14:55 → M.TBA-ER 14:55 → M.2W 16:04
PROVIDERS: Family Medicine; Internal Medicine; Internal Medicine Cardiovascular Disease; ADMIT Internal Medicine
DX: I13.0 Hypertensive heart and chronic kidney disease with heart failure and stage 1 through stage 4 chronic kidney disease, or unspecified chronic kidney disease (principal); N17.0 Acute kidney failure with tubular necrosis; I50.43 Acute on chronic combined systolic (congestive) and diastolic (congestive) heart failure; E87.1 Hypo-osmolality and hyponatremia; E44.0 Moderate protein-calorie malnutrition; M19.90 Unspecified osteoarthritis, unspecified site; E87.6 Hypokalemia; R00.1 Bradycardia, unspecified; E11.22 Type 2 diabetes mellitus with diabetic chronic kidney disease; E66.9 Obesity, unspecified; T50.905A Adverse effect of unspecified drugs, medicaments and biological substances, initial encounter; N18.3 Chronic kidney disease, stage 3 (moderate); I25.10 Atherosclerotic heart disease of native coronary artery without angina pectoris; E78.5 Hyperlipidemia, unspecified; K57.90 Diverticulosis of intestine, part unspecified, without perforation or abscess without bleeding; I27.20 Pulmonary hypertension, unspecified; I48.2 Chronic atrial fibrillation; E11.51 Type 2 diabetes mellitus with diabetic peripheral angiopathy without gangrene; Z87.440 Personal history of urinary (tract) infections; Z90.710 Acquired absence of both cervix and uterus; Z98.49 Cataract extraction status, unspecified eye; Z79.84 Long term (current) use of oral hypoglycemic drugs; Z79.4 Long term (current) use of insulin; Z95.828 Presence of other vascular implants and grafts; Z79.01 Long term (current) use of anticoagulants; Z79.82 Long term (current) use of aspirin; Z88.2 Allergy status to sulfonamides; Z88.8 Allergy status to other drugs, medicaments and biological substances; Z82.49 Family history of ischemic heart disease and other diseases of the circulatory system; Z87.891 Personal history of nicotine dependence; Z95.5 Presence of coronary angioplasty implant and graft; Y92.89 Other specified places as the place of occurrence of the external cause; Z68.33 Body mass index [BMI] 33.0-33.9, adult

== ENCOUNTER → 2018-05-17 | Outpatient (CLI) | payer MEDICARE, OTHER ==
[~2018-05-17] MED LIST changes: +METOLAZONE 5 MG5 MG PO; +MIRALAX17 GM PO; +PANTOPRAZOLE SO40 M1 PO; +ZAROXOLYN 5MG TA5 MG PO
[2018-05-17 10:23] LABS: ABSOLUTE BASOPHILS 0.1 thou/uL (0.0-0.2); ABSOLUTE EOSINOPHILS 0.3 thou/uL (0.0-0.7); ABSOLUTE LYMPHOCYTES 1.2 thou/uL (0.8-5.3); ABSOLUTE MONOCYTES 0.5 thou/uL (0.0-1.2); ABSOLUTE NEUTROPHILS 3.4 thou/uL (1.6-8.1); BASOPHILS 1.1 %; EOSINOPHILS 5.8 %; HEMATOCRIT 34.7 % (37.0-47.0); HEMOGLOBIN 11.7 gm/dL (12.0-15.0); LYMPHOCYTES 21.5 %; MCH 30.4 pg (26.0-34.0); MCHC 33.6 g/dL (28.0-37.0); MCV 90.4 fL (80.0-100.0); MONOCYTES 9.8 %; MPV 8.9 fl. (7.2-11.1); NUCLEATED RBCS 0 /100WBC; PLATELET COUNT* 124 thou/uL (150-400); POLYS 61.8 %; RBC 3.84 mil/uL (4.20-5.00); RDW-CV 14.3 % (10.5-14.5); WBC 5.5 thou/uL (4.0-11.0)
[2018-05-17 10:42] LABS: ALBUMIN 3.7 g/dL (3.4-5.0); ALKALINE PHOSPHATASE 131 U/L (46-116); ANION GAP 5 mmol/L (7-16); BUN 42 mg/dL (7-18); CALCIUM 10.6 mg/dL (8.5-10.1); CHLORIDE 99 mmol/L (98-107); CO2 35 mmol/L (21-32); CREATININE 1.3 mg/dL (0.6-1.3); GLUCOSE 83 mg/dL (70-99); POTASSIUM 3.5 mmol/L (3.5-5.1); SGOT 26 U/L (15-37); SGPT 23 U/L (30-65); SODIUM 139 mmol/L (136-145); TOTAL BILIRUBIN 0.6 mg/dL (<0.1-1.0); TOTAL PROTEIN 8.3 g/dL (6.4-8.2)
[2018-05-17 12:04] LABS: CHOLESTEROL 138 mg/dL (<200); HDL CHOLESTEROL 41 mg/dL (>40); LDL CHOLESTEROL 81 mg/dL (<100); TC:HDL 3.4 Ratio (Not establshd); TRIGLYCERIDE 80 mg/dL (<150); VLDL 16 mg/dL (<40)
[2018-05-17 12:05] LABS: SERUM ASSESSMENT Moderate Lipemia
[2018-05-17 21:10] LABS: GLYCOHEMOGLOBIN (HGB A1C) 6.5 % (4.8-5.6)
== END ==
LOC: M.LAB 10:01
PROVIDERS: Family Medicine
DX: I12.9 Hypertensive chronic kidney disease with stage 1 through stage 4 chronic kidney disease, or unspecified chronic kidney disease (principal); E11.22 Type 2 diabetes mellitus with diabetic chronic kidney disease; N18.3 Chronic kidney disease, stage 3 (moderate); E11.59 Type 2 diabetes mellitus with other circulatory complications; I25.10 Atherosclerotic heart disease of native coronary artery without angina pectoris; D69.6 Thrombocytopenia, unspecified

== ENCOUNTER → 2018-07-10 | Outpatient (CLI) | payer MEDICARE, OTHER ==
[2018-07-10 09:38] LABS: ABSOLUTE EOSINOPHILS 0.3 thou/uL (0.0-0.7); ABSOLUTE LYMPHOCYTES 0.9 thou/uL (0.8-5.3); ABSOLUTE MONOCYTES 0.4 thou/uL (0.0-1.2); ABSOLUTE NEUTROPHILS 3.1 thou/uL (1.6-8.1); BASOPHILS 0.8 %; EOSINOPHILS 5.5 %; HEMATOCRIT 32.7 % (37.0-47.0); HEMOGLOBIN 11.2 gm/dL (12.0-15.0); LYMPHOCYTES 18.9 %; MCH 30.9 pg (26.0-34.0); MCHC 34.2 g/dL (28.0-37.0); MCV 90.4 fL (80.0-100.0); MONOCYTES 8.2 %; MPV 9.3 fl. (7.2-11.1); NUCLEATED RBCS 0 /100WBC; PLATELET COUNT* 119 thou/uL (150-400); POLYS 66.6 %; RBC 3.61 mil/uL (4.20-5.00); WBC 4.7 thou/uL (4.0-11.0)
[2018-07-10 10:05] LABS: ALBUMIN 3.6 g/dL (3.4-5.0); CALCIUM 9.7 mg/dL (8.5-10.1); CREATININE 1.5 mg/dL (0.6-1.3); PHOSPHORUS* 3.4 mg/dL (2.5-4.9); POTASSIUM 3.9 mmol/L (3.5-5.1)
[2018-07-10 10:12] LABS: CALCIUM 9.6 mg/dL (8.5-10.1); CREATININE 1.6 mg/dL (0.6-1.3); PHOSPHORUS* 3.4 mg/dL (2.5-4.9)
== END ==
LOC: M.LAB 09:12
PROVIDERS: Internal Medicine Nephrology
DX: E11.22 Type 2 diabetes mellitus with diabetic chronic kidney disease (principal); I12.9 Hypertensive chronic kidney disease with stage 1 through stage 4 chronic kidney disease, or unspecified chronic kidney disease; N18.3 Chronic kidney disease, stage 3 (moderate)

== ENCOUNTER → 2018-09-25 | Outpatient (CLI) | payer MEDICARE, OTHER | LOC: M.MRI 11:08 | DX: M47.26 Other spondylosis with radiculopathy, lumbar region (principal); M43.16 Spondylolisthesis, lumbar region ==

== ENCOUNTER → 2018-10-08 | Outpatient (CLI) | payer MEDICARE, OTHER ==
[2018-10-08 11:17] LABS: HEMATOCRIT 33.9 % (37.0-47.0); HEMOGLOBIN 11.5 gm/dL (12.0-15.0)
[2018-10-08 11:29] LABS: ALBUMIN 3.5 g/dL (3.4-5.0); CALCIUM 9.9 mg/dL (8.5-10.1); CREATININE 1.3 mg/dL (0.6-1.3); PHOSPHORUS* 3.6 mg/dL (2.5-4.9); POTASSIUM 3.6 mmol/L (3.5-5.1); TOTAL BILIRUBIN 0.5 mg/dL (<0.1-1.0); TOTAL PROTEIN 7.4 g/dL (6.4-8.2)
[2018-10-08 11:57] LABS: CREATININE 1.4 mg/dL (0.6-1.3); PHOSPHORUS* 3.7 mg/dL (2.5-4.9)
== END ==
LOC: M.LAB 10:57
PROVIDERS: Internal Medicine Nephrology
DX: I13.0 Hypertensive heart and chronic kidney disease with heart failure and stage 1 through stage 4 chronic kidney disease, or unspecified chronic kidney disease (principal); N18.3 Chronic kidney disease, stage 3 (moderate); I50.33 Acute on chronic diastolic (congestive) heart failure; N25.81 Secondary hyperparathyroidism of renal origin; I48.91 Unspecified atrial fibrillation; Z79.01 Long term (current) use of anticoagulants; E78.5 Hyperlipidemia, unspecified; Z90.710 Acquired absence of both cervix and uterus

== ENCOUNTER → 2018-11-21 | Outpatient (CLI) | payer MEDICARE, OTHER ==
[2018-11-21 10:19] LABS: CHOLESTEROL 149 mg/dL (<200); HDL CHOLESTEROL 46 mg/dL (>40); LDL CHOLESTEROL 91 mg/dL (<100); TC:HDL 3.2 Ratio (Not establshd); TRIGLYCERIDE 61 mg/dL (<150); VLDL 12 mg/dL (<40)
[2018-11-21 10:20] LABS: SERUM ASSESSMENT Clear
== END ==
LOC: M.LAB 09:21
PROVIDERS: Internal Medicine Cardiovascular Disease
DX: E78.2 Mixed hyperlipidemia (principal)

== ENCOUNTER → 2018-12-17 | Outpatient (CLI) | payer MEDICARE, OTHER ==
[2018-12-17 10:35] LABS: ABSOLUTE EOSINOPHILS 0.1 thou/uL (0.0-0.7); ABSOLUTE MONOCYTES 0.4 thou/uL (0.0-1.2); ABSOLUTE NEUTROPHILS 3.6 thou/uL (1.6-8.1); BASOPHILS 0.8 %; EOSINOPHILS 2.5 %; HEMATOCRIT 35.7 % (37.0-47.0); HEMOGLOBIN 12.1 gm/dL (12.0-15.0); LYMPHOCYTES 19.4 %; MCH 31.4 pg (26.0-34.0); MCHC 33.8 g/dL (28.0-37.0); MCV 92.8 fL (80.0-100.0); MONOCYTES 8.6 %; MPV 8.6 fl. (7.2-11.1); NUCLEATED RBCS 0 /100WBC; PLATELET COUNT* 129 thou/uL (150-400); POLYS 68.7 %; RBC 3.85 mil/uL (4.20-5.00); RDW-CV 12.9 % (10.5-14.5); WBC 5.2 thou/uL (4.0-11.0)
[2018-12-17 11:03] LABS: CALCIUM 9.9 mg/dL (8.5-10.1); CREATININE 1.4 mg/dL (0.6-1.3); POTASSIUM 3.4 mmol/L (3.5-5.1); TOTAL BILIRUBIN 0.6 mg/dL (<0.1-1.0); TOTAL PROTEIN 7.7 g/dL (6.4-8.2)
[2018-12-18 03:07] LABS: GLYCOHEMOGLOBIN (HGB A1C) 6.9 % (4.8-5.6)
== END ==
LOC: M.LAB 10:20
PROVIDERS: Family Medicine
DX: I13.0 Hypertensive heart and chronic kidney disease with heart failure and stage 1 through stage 4 chronic kidney disease, or unspecified chronic kidney disease (principal); N18.3 Chronic kidney disease, stage 3 (moderate); E11.22 Type 2 diabetes mellitus with diabetic chronic kidney disease; E11.649 Type 2 diabetes mellitus with hypoglycemia without coma

== ENCOUNTER → 2019-02-04 | Outpatient (CLI) | payer MEDICARE, OTHER ==
[2019-02-04 11:22] LABS: HEMATOCRIT 33.2 % (37.0-47.0); HEMOGLOBIN 11.5 gm/dL (12.0-15.0)
[2019-02-04 11:31] LABS: ALBUMIN 3.4 g/dL (3.4-5.0); CALCIUM 10.4 mg/dL (8.5-10.1); CREATININE 1.3 mg/dL (0.6-1.3); POTASSIUM 4.2 mmol/L (3.5-5.1); TOTAL BILIRUBIN 0.3 mg/dL (<0.1-1.0); TOTAL PROTEIN 7.7 g/dL (6.4-8.2)
[2019-02-04 11:54] LABS: CREATININE 1.3 mg/dL (0.6-1.3); PHOSPHORUS* 3.2 mg/dL (2.5-4.9)
== END ==
LOC: M.LAB 10:43
PROVIDERS: Internal Medicine Nephrology
DX: N25.81 Secondary hyperparathyroidism of renal origin (principal); I12.9 Hypertensive chronic kidney disease with stage 1 through stage 4 chronic kidney disease, or unspecified chronic kidney disease; N18.3 Chronic kidney disease, stage 3 (moderate)

== ENCOUNTER → 2019-05-05 | Outpatient (CLI) | payer MEDICARE, OTHER ==
[2019-05-05 09:08] LABS: ABSOLUTE BASOPHILS 0.1 thou/uL (0.0-0.2); ABSOLUTE EOSINOPHILS 0.1 thou/uL (0.0-0.7); ABSOLUTE LYMPHOCYTES 0.7 thou/uL (0.8-5.3); ABSOLUTE MONOCYTES 0.5 thou/uL (0.0-1.2); ABSOLUTE NEUTROPHILS 4.5 thou/uL (1.6-8.1); EOSINOPHILS 1.4 %; HEMATOCRIT 34.9 % (37.0-47.0); HEMOGLOBIN 12.1 gm/dL (12.0-15.0); LYMPHOCYTES 12.6 %; MCH 30.6 pg (26.0-34.0); MCHC 34.7 g/dL (28.0-37.0); MCV 88.1 fL (80.0-100.0); MONOCYTES 8.1 %; MPV 8.4 fl. (7.2-11.1); NUCLEATED RBCS 0 /100WBC; PLATELET COUNT* 157 thou/uL (150-400); POLYS 76.9 %; RBC 3.96 mil/uL (4.20-5.00); RDW-CV 12.5 % (10.5-14.5); WBC 5.8 thou/uL (4.0-11.0)
[2019-05-05 09:22] LABS: ALBUMIN 3.5 g/dL (3.4-5.0); ALKALINE PHOSPHATASE 116 U/L (46-116); ANION GAP 6 mmol/L (7-16); BUN 54 mg/dL (7-18); CALCIUM 9.4 mg/dL (8.5-10.1); CHLORIDE 100 mmol/L (98-107); CHOLESTEROL 156 mg/dL (<200); CO2 33 mmol/L (21-32); CREATININE 1.4 mg/dL (0.6-1.3); GLUCOSE 83 mg/dL (70-99); HDL CHOLESTEROL 37 mg/dL (>40); LDL CHOLESTEROL 110 mg/dL (<100); POTASSIUM 3.4 mmol/L (3.5-5.1); SERUM ASSESSMENT Clear; SGOT 18 U/L (15-37); SGPT 22 U/L (30-65); SODIUM 139 mmol/L (136-145); TC:HDL 4.2 Ratio (Not establshd); TOTAL BILIRUBIN 0.3 mg/dL (<0.1-1.0); TOTAL PROTEIN 7.4 g/dL (6.4-8.2); TRIGLYCERIDE 47 mg/dL (<150); VLDL 9 mg/dL (<40)
[2019-05-05 23:06] LABS: GLYCOHEMOGLOBIN (HGB A1C) 6.5 % (4.8-5.6)
== END ==
LOC: M.LAB 08:39
PROVIDERS: Family Medicine
DX: R53.82 Chronic fatigue, unspecified (principal); I25.10 Atherosclerotic heart disease of native coronary artery without angina pectoris; E11.22 Type 2 diabetes mellitus with diabetic chronic kidney disease; N18.3 Chronic kidney disease, stage 3 (moderate)

== ENCOUNTER → 2019-09-12 | Outpatient (CLI) | payer MEDICARE, OTHER ==
[2019-09-12 09:16] LABS: ALBUMIN 3.8 g/dL (3.4-5.0); ALKALINE PHOSPHATASE 126 U/L (46-116); ANION GAP 7 mmol/L (7-16); BUN 56 mg/dL (7-18); CALCIUM 9.9 mg/dL (8.5-10.1); CHLORIDE 95 mmol/L (98-107); CHOLESTEROL 149 mg/dL (<200); CO2 31 mmol/L (21-32); CREATININE 1.5 mg/dL (0.6-1.3); GLUCOSE 117 mg/dL (70-99); HDL CHOLESTEROL 40 mg/dL (>40); LDL CHOLESTEROL 99 mg/dL (<100); POTASSIUM 3.9 mmol/L (3.5-5.1); SGOT 29 U/L (15-37); SGPT 27 U/L (30-65); SODIUM 133 mmol/L (136-145); TC:HDL 3.7 Ratio (Not establshd); TOTAL BILIRUBIN 0.7 mg/dL (<0.1-1.0); TOTAL PROTEIN 8.5 g/dL (6.4-8.2); TRIGLYCERIDE 54 mg/dL (<150); VLDL 11 mg/dL (<40)
[2019-09-12 09:18] LABS: SERUM ASSESSMENT Clear
[2019-09-13 02:08] LABS: GLYCOHEMOGLOBIN (HGB A1C) 6.6 % (4.8-5.6)
== END ==
LOC: M.LAB 08:46
PROVIDERS: Family Medicine
DX: E11.22 Type 2 diabetes mellitus with diabetic chronic kidney disease (principal); I50.32 Chronic diastolic (congestive) heart failure; N18.3 Chronic kidney disease, stage 3 (moderate)

== ENCOUNTER → 2019-10-29 | Outpatient (CLI) | payer MEDICARE, OTHER ==
[2019-10-29 14:00] LABS: CALCIUM 9.4 mg/dL (8.5-10.1); CREATININE 1.2 mg/dL (0.6-1.3)
== END ==
LOC: M.LAB 13:26
PROVIDERS: ATTEND Internal Medicine Cardiovascular Disease
DX: I50.32 Chronic diastolic (congestive) heart failure (principal); R60.0 Localized edema

== ENCOUNTER → 2019-11-03 | Outpatient (CLI) | payer MEDICARE, OTHER ==
[~2019-11-03] MED LIST changes: +APAP650 PO; +BUMETANIDE 1 MG1 M1 PO; +BUMEX2 MG PO; +LEVEMIR100 UNIT/2 SUBQ; +OXYBUTYNIN 5 MG5 M2 PO; +SPIRONOLACTONE25 M1 PO; +VITAMIN B-121000 MC2 SUBLING
--- NOTE | 2019-11-03 12:25 | 2DMMODE ---
[place] [address] 2 D/M-MODE ECHOCARDIOGRAM Name: ROMIE APARICIO Room: [facility]#: [id number] Admission: 11/03/19 Attend Phys: Ganesh Joaquin, Discharge: Date of : 33 Date of Service: 11/03/19 1225 Report #: [id number] THIS REPORT FOR: cc: Sagar Clemens Ahmad W. DO Liston, Michael J. MD [facility] ~ APPROVED REPORT Study performed: 11/03/2019 10:52:37 EXAM: Comprehensive 2D, Doppler, and color-flow Echocardiogram Patient Location: Out-Patient BSA: 1.67 HR: 72 bpm BP: 136/50 mmHg Other Information Study Quality: Good Indications Congestive Heart Failure 2D Dimensions IVSd: 13.02 (7-11mm) LVOT Diam: 19.31 (18-24mm) LVDd: 34.86 mm PWd: 11.21 (7-11mm) Ascending Ao: 27.39 (22-36mm) LVDs: 26.38 (25-40mm) Aortic Root: 20.84 mm Volumes Left Atrial Volume (Systole) LA ESV Index: 29.20 mL/m2 Aortic Valve AoV Peak Shaun.: 1.42 m/s AO Peak Gr.: 8.04 mmHg LVOT Max P.81 mmHg AO Mean Gr.: 4.43 mmHg LVOT Mean P.96 mmHg LVOT Max V: 0.98 m/s AO V2 VTI: 31.50 cm LVOT Mean V: 0.65 m/s MIGUEL ANGEL (VTI): 2.16 cm2 LVOT V1 VTI: 23.29 cm Mitral Valve MV Decel. Time: 202.21 ms [place] [address] [place] [address] 2 D/M-MODE ECHOCARDIOGRAM Name: ROMIE APARICIO Room: [facility]#: [id number] Admission: 11/03/19 Attend Phys: Ganesh Joaquin, Discharge: Date of : 33 Date of Service: 11/03/19 1225 Report #: [id number] MV PHT: 58.64 ms MVA (PHT): 3.75 cm2 TDI Medial E' Shaun.: 0.04 m/s Lateral E' Shaun.: 0.12 m/s Pulmonary Valve PV Peak Shaun.: 1.21 m/s PV Peak Gr.: 5.90 mmHg Tricuspid Valve RAP Estimate: 5.00 mmHg TR Peak Gr.: 23.87 mmHg RVSP: 28.87 mmHg PA Pressure: 28.87 mmHg Left Ventricle The left ventricle is normal size. There is normal LV segmental wall motion. Flattened septum consistent with right ventricular volume overload. Mild concentric left ventricular hypertrophy. Left ventricular systolic function is normal. LVEF is 60-65%. Transmitral Doppler flow pattern suggests impaired LV relaxation. Right Ventricle The right ventricle is normal size. The right ventricular systolic function is normal. Atria Left atrium is mildly dilated. Right atrium is mildly dilated. Aortic Valve Mild aortic valve sclerosis. No aortic regurgitation is present. There is no aortic valvular stenosis. Mitral Valve Mild mitral annular calcification. Mild mitral regurgitation. No evidence of mitral valve stenosis. Tricuspid Valve The tricuspid valve is normal in structure. Mild tricuspid regurgitation. The RVSP is 45-50 mmHg. Pulmonic Valve The pulmonary valve is normal in structure. Moderate [place] [address] 2 D/M-MODE ECHOCARDIOGRAM Name: ROMIE APARICIO Room: [facility]#: [id number] Admission: 11/03/19 Attend Phys: Ganesh Joaquin, Discharge: Date of : 33 Date of Service: 11/03/19 1225 Report #: [id number] Great Vessels The aortic root is normal in size. IVC is dilated and collapses <50% with inspiration. Pericardium There is no pericardial effusion. <Conclusion> The left ventricle is normal size. Mild concentric left ventricular hypertrophy. Left ventricular systolic function is normal. LVEF is 60-65%. Transmitral Doppler flow pattern suggests impaired LV relaxation. There is normal LV segmental wall motion. Flattened septum consistent with right ventricular volume overload. Left atrium is mildly dilated. Right atrium is mildly dilated. Mild aortic valve sclerosis. There is no aortic valvular stenosis. Mild mitral annular calcification. Mild mitral regurgitation. Mild tricuspid regurgitation. The RVSP is 45-50 mmHg. Moderate pulmonic regurgitation. IVC is dilated and collapses <50% with inspiration. <ELECTRONICALLY SIGNED> By: Ganesh Joaquin MD, FACC 11/03/19 1225 1225 1225 Ganesh Joaquin MD, FACC /INF
[2019-11-03 12:34] LABS: CALCIUM 9.7 mg/dL (8.5-10.1); CREATININE 1.1 mg/dL (0.6-1.3)
== END ==
LOC: M.CRD 10-27 14:00 → M.LAB 10:28 → M.CRD 10:28
PROVIDERS: ATTEND Internal Medicine Cardiovascular Disease
DX: I08.8 Other rheumatic multiple valve diseases (principal); I50.32 Chronic diastolic (congestive) heart failure; R60.0 Localized edema; I25.10 Atherosclerotic heart disease of native coronary artery without angina pectoris

== ENCOUNTER → 2019-11-27 | Outpatient (CLI) | payer MEDICARE, OTHER ==
[~2019-11-27] MED LIST changes: -APAP650 PO; -BUMETANIDE 1 MG1 M1 PO; -BUMEX2 MG PO; -LEVEMIR100 UNIT/2 SUBQ; -OXYBUTYNIN 5 MG5 M2 PO; -SPIRONOLACTONE25 M1 PO; -VITAMIN B-121000 MC2 SUBLING
[2019-11-27 10:45] LABS: ALBUMIN 2.8 g/dL (3.4-5.0); CALCIUM 8.9 mg/dL (8.5-10.1); CREATININE 1.2 mg/dL (0.6-1.3); POTASSIUM 4.3 mmol/L (3.5-5.1); TOTAL BILIRUBIN 0.5 mg/dL (<0.1-1.0); TOTAL PROTEIN 5.8 g/dL (6.4-8.2)
== END ==
LOC: M.LAB 10:02
PROVIDERS: ATTEND Registered Nurse
DX: R60.0 Localized edema (principal)

== ENCOUNTER → 2019-12-05 | Outpatient (CLI) | payer MEDICARE, OTHER ==
[2019-12-05 13:31] LABS: CALCIUM 9.3 mg/dL (8.5-10.1); CREATININE 1.5 mg/dL (0.6-1.3); POTASSIUM 4.2 mmol/L (3.5-5.1)
== END ==
LOC: M.LAB 13:03
PROVIDERS: ATTEND Registered Nurse
DX: I50.32 Chronic diastolic (congestive) heart failure (principal); R60.0 Localized edema

== ENCOUNTER → 2019-12-23 | Outpatient (CLI) | payer MEDICARE, OTHER ==
[2019-12-23 10:29] LABS: ABSOLUTE EOSINOPHILS 0.2 thou/uL (0.0-0.7); ABSOLUTE LYMPHOCYTES 0.7 thou/uL (0.8-5.3); ABSOLUTE MONOCYTES 0.4 thou/uL (0.0-1.2); ABSOLUTE NEUTROPHILS 3.7 thou/uL (1.6-8.1); EOSINOPHILS 3.4 %; HEMATOCRIT 33.3 % (37.0-47.0); HEMOGLOBIN 11.6 gm/dL (12.0-15.0); LYMPHOCYTES 14.9 %; MCH 31.6 pg (26.0-34.0); MCHC 34.7 g/dL (28.0-37.0); MCV 90.9 fL (80.0-100.0); MONOCYTES 7.3 %; MPV 8.3 fl. (7.2-11.1); NUCLEATED RBCS 0 /100WBC; PLATELET COUNT* 129 thou/uL (150-400); POLYS 73.4 %; RBC 3.66 mil/uL (4.20-5.00); RDW-CV 13.1 % (10.5-14.5)
[2019-12-23 10:40] LABS: ALBUMIN 3.3 g/dL (3.4-5.0); CALCIUM 9.2 mg/dL (8.5-10.1); CREATININE 1.2 mg/dL (0.6-1.3); PHOSPHORUS* 3.2 mg/dL (2.5-4.9); POTASSIUM 4.6 mmol/L (3.5-5.1)
[2019-12-23 10:57] LABS: CALCIUM 9.2 mg/dL (8.5-10.1); CREATININE 1.3 mg/dL (0.6-1.3); PHOSPHORUS* 3.5 mg/dL (2.5-4.9)
== END ==
LOC: M.LAB 10:04
PROVIDERS: ATTEND Internal Medicine Nephrology
DX: N18.3 Chronic kidney disease, stage 3 (moderate) (principal)

== ENCOUNTER → 2020-01-19 | Outpatient (CLI) | payer MEDICARE, OTHER ==
[2020-01-19 10:03] LABS: ABSOLUTE EOSINOPHILS 0.2 thou/uL (0.0-0.7); ABSOLUTE LYMPHOCYTES 0.9 thou/uL (0.8-5.3); ABSOLUTE MONOCYTES 0.5 thou/uL (0.0-1.2); ABSOLUTE NEUTROPHILS 4.2 thou/uL (1.6-8.1); BASOPHILS 0.7 %; EOSINOPHILS 2.7 %; HEMATOCRIT 33.4 % (37.0-47.0); HEMOGLOBIN 11.6 gm/dL (12.0-15.0); LYMPHOCYTES 15.9 %; MCH 31.6 pg (26.0-34.0); MCHC 34.6 g/dL (28.0-37.0); MCV 91.3 fL (80.0-100.0); MONOCYTES 7.9 %; MPV 8.8 fl. (7.2-11.1); NUCLEATED RBCS 0 /100WBC; PLATELET COUNT* 126 thou/uL (150-400); POLYS 72.8 %; RBC 3.66 mil/uL (4.20-5.00); RDW-CV 13.5 % (10.5-14.5); WBC 5.8 thou/uL (4.0-11.0)
[2020-01-19 10:40] LABS: ALBUMIN 3.3 g/dL (3.4-5.0); CALCIUM 9.3 mg/dL (8.5-10.1); CREATININE 1.2 mg/dL (0.6-1.3); POTASSIUM 4.8 mmol/L (3.5-5.1); TOTAL BILIRUBIN 0.5 mg/dL (<0.1-1.0); TOTAL PROTEIN 6.3 g/dL (6.4-8.2)
== END ==
LOC: M.LAB 09:44
PROVIDERS: ATTEND Family Medicine
DX: I50.32 Chronic diastolic (congestive) heart failure (principal); E11.8 Type 2 diabetes mellitus with unspecified complications; N18.30 Chronic kidney disease, stage 3 unspecified

== ENCOUNTER → 2020-01-27 | Outpatient (CLI) | payer MEDICARE, OTHER | LOC: M.ULTRA 12:59 | PROVIDERS: ATTEND Family Medicine | DX: N63.20 Unspecified lump in the left breast, unspecified quadrant (principal) ==

== ENCOUNTER → 2020-02-05 | Outpatient (CLI) | payer MEDICARE, OTHER | LOC: M.RAD 13:28 | PROVIDERS: ATTEND Family Medicine | DX: Z12.31 Encounter for screening mammogram for malignant neoplasm of breast (principal); N64.89 Other specified disorders of breast ==

== ENCOUNTER → 2020-02-12 | Outpatient (CLI) | payer MEDICARE, OTHER | LOC: M.RAD 02-11 08:41 | PROVIDERS: ATTEND Family Medicine | DX: R92.8 Other abnormal and inconclusive findings on diagnostic imaging of breast (principal) ==

== ENCOUNTER → 2020-02-24 | Outpatient (CLI) | payer MEDICARE, OTHER ==
[~2020-02-24] MED LIST changes: +APAP650 PO; +BUMETANIDE 1 MG1 M1 PO; +BUMEX2 MG PO; +LEVEMIR100 UNIT/2 SUBQ; +OXYBUTYNIN 5 MG5 M2 PO; +SPIRONOLACTONE25 M1 PO; +VITAMIN B-121000 MC2 SUBLING
--- NOTE | 2020-03-02 12:09 | PATH ---
[address] [address] PATHOLOGY RPT PROCEDURE Name: ROMIE APARICIO [id number] Admission: 02/24/20 Date of : 33 Discharge: Report #: [id number] Path Case #: [id number] [facility] Accession Number: [id number] . 01 Material submitted: . breast - LEFT BREAST BIOPSY, SUBAREOLAR. Modifiers: left . 01 Clinical history: . 0.78 x 0.53 x 0.54 cm. . 02 Diagnosis: Left breast subareolar: - INFILTRATING DUCTAL ADENOCARCINOMA, LOW GRADE, SPANNING 8 MM. SEE COMMENT. (BECKY:chelsie; 02/26/2020) . . Surgical Pathology Cancer Case Summary . Protocol posting date: May 2019 . INVASIVE CARCINOMA OF THE BREAST: Biopsy . Procedure ___ Needle biopsy . Specimen Laterality ___ Left . Tumor Site ___ Other (specify): Subareolar . Tumor Size ___ Greatest dimension of largest invasive focus >1 mm: 8 mm . Histologic Type ___ Invasive carcinoma of no special type (ductal) . Histologic Grade ([place] Histologic Score) . Glandular (Acinar)/Tubular Differentiation ___ Score 1 (>75% of tumor area forming glandular/tubular structures) . Nuclear Pleomorphism ___ Score 1 (nuclei small with little increase in size in comparison with normal breast epithelial cells, regular outlines, uniform nuclear chromatin, little variation in size) [place] [address] PATHOLOGY RPT PROCEDURE Name: ROMIE APARICIO Room: [facility] [place]#: [id number] Admission: 02/24/20 Date of : 34 Discharge: Report #: [id number] Path Case #: [id number] ___ Score 1 . Overall Grade ___ Grade 1 (scores of 3, 4, or 5) . Ductal Carcinoma In Situ (DCIS) ___ Not identified . Lymphovascular Invasion ___ Not identified . Microcalcifications ___ Not identified . Ancillary Studies . Biomarker Studies ___ Pending [facility] 02/26/2020 1300 Local . 02 Comment: Approximately 90% of the submitted tissues are involved by invasive carcinoma. Properly controlled immunohistochemical stains performed on A2 show the following results, supporting the classification: . E-cadherin: Positive Keratin BAILEY: Highlights neoplastic cells . Breast tumor profile studies are pending on A1 and will be the subject of an addendum report. Reviewed with Dr. Brissa Wiley, who agrees with the diagnosis. Carlene (acting [facility] Breast Navigator) notified at approximately 1325 on 02/27/2020. (BECKY:chelsie; 02/26/2020) . 02 Addendum: . Special studies report received from [facility], [address] [place] [address], [address], [place], [address], on case [id number], labeled with their number [id number]*, dated . . Breast/Prognostic Marker Analysis . Specimen Site: Lt Breast Subareolar, Multiple Needle Cores, Breast Cancer Specimen ID #: [id number] . ER (Estrogen Receptor) Present/Positive Percent: 95.00% Analysis: [place] [address] PATHOLOGY RPT PROCEDURE Name: ROMIE APARICIO Room: [facility]#: [id number] Admission: 02/24/20 Date of : 33 Discharge: Report #: [id number] Path Case #: [id number] Comments: Staining Intensity: Strong . VT (Progesterone Receptor) Present/Positive Percent: 8.00% Analysis: Manual Comments: Staining Intensity: Weak To Strong . HER2 Not Over-Expressed Score: 1+ Analysis: Manual . Ki-67 Low Proliferation Percent: 4.00% Analysis: Manual . Time to Fixation (Cold Ischemic Time): Immediate Duration of Fixation: 33 hours and 35 minutes Type of Fixative: 10% Neutral Buffered Formalin . . Comments: ER/PgR testing at [facility]. is performed in compliance with the ASCO/CAP Clinical Practice Guidelines. If the result for ER is less than 1% it is reported as Negative; if the ER result is 1-10% it is reported as Low Positive; if the ER result is greater than 10% it is reported as Positive. If the result for PgR is less than 1% it is reported as Negative; if the PgR result is equal to or greater than 1%, it is reported as Positive. . REF: Yaz KH, Harvey SHIN, et al: Estrogen and Progesterone Receptor Testing in Breast Cancer. ASCO/CAP Guideline Update. DOI 10.5858/arpa.8507-6427-XL. . Whole slide image capture is performed using [employer] ([employer]Tac[employer]) platform. Image analysis, if ordered, is performed using SureFire software. . at [facility]. Leonardo Rose MD Pathologist . . Methodology The HER2 Receptor protein expression is analyzed using the Sebastian HER2 rabbit monoclonal antibody (clone 4B5). This assay is [place] [address] PATHOLOGY RPT PROCEDURE Name: ROMIE APARICIO Room: [facility] [place]#: [id number] Admission: 02/24/20 Date of : 34 Discharge: Report #: [id number] Path Case #: [id number] determination of the HER2 protein over-expression in paraffin embedded, formalin fixed breast cancer tissue on the Sebastian Benchmark. The specimen is processed using a secondary antibody-HRP conjugate detection system. The membrane staining of the tumor is determined either by manual score or image analysis. This antibody is intended for in vitro diagnostic use. The score is reported as 0, 1+, 2+, or 3+. This test is used for clinical purposes. . A rabbit monoclonal antibody (clone SP1) that recognized the Estrogen Receptor is used to perform immunohistochemistry on routinely fixed (formalin) paraffin embedded tissue on the Sebastian Benchmark. The specimen is processed using a secondary antibody-HRP conjugate detection system. The percentage of stained tumor nuclei is determined either manually or by image analysis. This test is intended for in vitro diagnostic use. This test is used for clinical purposes. . A rabbit monoclonal antibody (clone 1E2) that recognized the Progesterone Receptor is used to perform immunohistochemistry on routinely fixed (formalin) paraffin embedded tissue on the Sebastian Benchmark. The specimen is processed using a secondary antibody-HRP conjugate detection system. The percentage of stained tumor nuclei is determined either manually or by image analysis. This test is intended for in vitro diagnostic use. This test is used for clinical purposes. . A rabbit monoclonal antibody (clone 30-9) that recognized Ki67 is used to perform immunohistochemistry on routinely fixed (formalin) paraffin embedded tissue on the Sebastian Benchmark. The specimen is processed using a secondary antibody-HRP conjugate detection system. The percentage of stained tumor nuclei is determined either manually or by image analysis. This test is intended for in vitro diagnostic use. This test is used for clinical purposes. . Intended Use: This antibody is intended for in vitro diagnostic (IVD) use. HER2 (4B5) is a rabbit monoclonal antibody intended for the semi-quantitative detection of HER2 antigen in sections of formalin-fixed, paraffin embedded normal and neoplastic tissue. . This antibody is intended for in vitro diagnostic (IVD) use. Estrogen Receptor (ER) (SP1) is a rabbit monoclonal antibody (IgG) that is intended for the qualitative detection of estrogen receptor (ER) antigen in sections of formalin-fixed, paraffin-embedded tissue. ER is a rabbit monoclonal antibody that recognizes human estrogen receptor alpha. . This antibody is intended for in vitro diagnostic (IVD) use. Progesterone Receptor (VT) (1E2) is a rabbit monoclonal antibody (IgG) that is intended for the qualitative detection of progesterone receptor (VT) antigen in sections of formalin fixed, paraffin embedded tissue. VT is a rabbit monoclonal antibody that recognizes the A and B forms of the human [facility] [address] [place] [address] PATHOLOGY RPT PROCEDURE Name: ROMIE APARICIO Room: [facility]#: [id number] Admission: 02/24/20 Date of : 34 Discharge: Report #: [id number] Path Case #: [id number] progesterone receptor. . This antibody is intended for in vitro diagnostic (IVD) use. Ki-67 (30-9) is a rabbit monoclonal antibody (IgG) directed against C-terminal portion of Ki-67 antigen. Staining for Ki-67 can be used to aid in assessing the proliferative activity of normal and neoplastic tissue. Ki-67 is a nuclear protein expressed in proliferating cells. During the cell cycle, the Ki-67 antigen is present in the G1, S, G2 and M phase but is absent in the G0 (quiescent phase). . . Disclaimer: This Test was performed by [facility] at [address], [address]. . [facility] is a business unit of [facility] [employer] a wholly-owned subsidiary of to be. . This assay has not been validated on decalcified tissues. Results should be interpreted with caution if this specimen was decalcified given the likelihood of false negativity on decalcified specimens. . Any image(s) that accompany this report is/are a dental sales representative image(s) only and should not be used to render a diagnosis. . This interpretation is contingent on the specimen and the clinical information received. . For any special tests/stains performed, known positive cells or tissues are tested with each marker and examined to ensure positivity. Positive and negative internal controls, if present, react appropriately. . This analysis is an adjunct to the evaluation of the referring physician and does not represent a final diagnosis. . The immunohistochemistry tests performed at [facility] were validated on tissue fixed in 10% neutral buffered formalin. The performance characteristics of the tests performed on tissue processed in other fixatives is not known. . HER2 testing at [facility] is performed in compliance with the 2018 updated ASCO/CAP Clinical Practice Guideline Focused Update. If the result is EQUIVOCAL (2+), it must be confirmed by an alternative assay such as FISH or Dual MICHELLE. REF: Nicol SALGADO, KIP Gabriel et al: Human Epidermal Growth Factor Receptor 2 Testing in Breast Cancer: ASCO/CAP Clinical Practice Guideline Focused Update. J Clin Oncol 36:8095-8139, 2018. [place] [address] PATHOLOGY RPT PROCEDURE Name: ROMIE APARICIO [facility] [id number] Admission: 02/24/20 Date of : 34 Discharge: Report #: [id number] Path Case #: [id number] HER2 and ER/VT ASCO/CAP guidelines require fixation in neutral buffered formalin for a minimum of 6 and a maximum of 72 hours. Fixation times less than 6 hours may not adequately preserve cell proteins. Fixation times longer than 72 hours may cause excess cross-linking of proteins reducing the antigen available for staining. Either scenario can cause reduced staining; hence false negative results are possible and should be considered for these situations if the HER2 IHC score is less than 3+ or ER or VT is negative (no staining or <1% positive). It is recommended that specimens fixed longer than 72 hours with HER2 IHC scores less than 3+ be confirmed by HER2 FISH or Dual MICHELLE. The time from biopsy/excision to fixation in formalin (cold ischemic time) must be less than 1 hour. Time to fixation (cold ischemic time) greater than 1 hour should be interpreted with caution. HER2 testing, mainly HER2 by FISH, is particularly vulnerable since excessive cold ischemic time results in preferential loss of HER2 probe signals that may lead to false negative results. . SCORE STAINING PATTERN IN TUMOR CELLS INTERPRETATION RESULTS 0 No staining observed or incomplete, faint membrane staining in less than or equal to 10% of tumor cells. Negative 1+ Incomplete, faint membrane staining in greater than 10% of tumor cells. Negative 2+ Weak to moderate complete membrane staining observed in greater than 10% of tumor cells. Equivocal* *Must be confirmed by alternative assay (IHC/FISH/Dual MICHELLE) 3+ Intense, complete membrane staining in greater than 10% of tumor cells. Positive . A complete copy of the report is on file. . Professional and Technical services performed by [facility]. at [address] [place] [address]. . (BECKY:amj 03/01/2020) AZJ/03/02/2020 Addendum Electronically Signed by Toan Pinedo MD, Pathologist . 02 Electronically signed: . Toan Pinedo MD, Pathologist NPI- [id number] . 01 Gross description: . The specimen is received in formalin, labeled "Romie Aparicio, left breast [facility] [address] [place] [address] PATHOLOGY RPT PROCEDURE Name: ROMIE APARICIO Room: [facility]#: [id number] Admission: 02/24/20 Date of : 34 Discharge: Report #: [id number] Path Case #: [id number] subareolar". Received are multiple needle cores of fibrofatty tissue measuring 1.4 x 1.2 x 0.2 cm in aggregate dimensions. The specimen is submitted entirely in cassettes A1 through A3. The cold ischemic time is less than 1 minute. The total formalin fixation time is 33 hours and 35 minutes. (CAA; 02/25/2020) QAC/QA 02/25/2020 1530 Local . 02 Pathologist provided ICD-10: C50.912 . 02 CPT . 159531, L18296, I22497 Specimen Comment: A courtesy copy of this report has been sent to [phone], [phone] Specimen Comment: [phone], , Specimen Comment: Report sent to ,DR CABRERA,DR BENNETT / DR GARCIA Performed at: 01 [facility] [address] [place] [address] [address], [place], [place] [id number] MD Domingo Ayers MD Phone: [phone] Performed at: [address] [facility] [address] [id number] MD Toan Pinedo MD Phone: [phone]
== END ==
LOC: M.RAD 10:56
PROVIDERS: ATTEND Family Medicine
DX: N63.20 Unspecified lump in the left breast, unspecified quadrant (principal); C50.912 Malignant neoplasm of unspecified site of left female breast; Z79.899 Other long term (current) drug therapy

== ENCOUNTER → 2020-03-17 | Outpatient (CLI) | payer MEDICARE, OTHER | LOC: M.LAB 14:46 | PROVIDERS: ATTEND Surgery | DX: Z01.812 Encounter for preprocedural laboratory examination (principal); D05.10 Intraductal carcinoma in situ of unspecified breast; Z20.828 Contact with and (suspected) exposure to other viral communicable diseases ==

== ENCOUNTER 2020-03-23 06:23 | Observation (INO) | payer MEDICARE, OTHER ==
[~2020-03-23] VITALS: Ht 152.4 cm; Wt 65.3 kg
[2020-03-23 10:09] LABS: HEMOGLOBIN 11.8 gm/dL (12.0-15.0); MCH 30.8 pg (26.0-34.0); MCHC 32.7 g/dL (28.0-37.0); MCV 94.1 fL (80.0-100.0); MPV 8.7 fl. (7.2-11.1); RBC 3.83 mil/uL (4.20-5.00); WBC 6.2 thou/uL (4.0-11.0)
[2020-03-23 10:10] LABS: CALCIUM 10.5 mg/dL (8.5-10.1); CREATININE 1.5 mg/dL (0.6-1.3); POTASSIUM 4.7 mmol/L (3.5-5.1)
--- NOTE | 2020-03-23 12:20 | EKG ---
[place] [address] ELECTROCARDIOGRAM REPORT Name: ROMIE APARICIO Room: [address] M.R.#: [id number] Admission: 03/23/20 Attend Phys: Mariah Fernández, Discharge: Date of : 33 Date of Service: 03/23/20 1104 Report #: [id number] THIS REPORT FOR: //name// [facility] Test Date: 2020-03-23 Test Time: 11:04:59 Pat Name: ROMIE APARICIO Department: Room: [place] [address] Gender: F Automobile Service Writer: DICKSON : 1935 Requested By: Mariah Fernández Order Number: [id number] Velvet MD: Brayan Watt Measurements Intervals [place] Rate: 55 P: [place]: QRS: 103 QRSD: 124 T: -29 QT: 445 QTc: 426 Interpretive Statements Atrial fibrillation RBBB and LPFB Anteroseptal infarct, age indeterminate Compared to ECG 03/12/2018 12:58:44 rate has increased Electronically Signed On 03-23-2020 12:19:53 BOLT LOADER by Brayan Watt [email or web address] <ELECTRONICALLY SIGNED> By: Brayan Watt MD, FAC 03/23/20 1219 1104 1104 Brayan Watt MD, [facility] /EPI
[2020-03-23 17:05] VITALS: BP 129/56
[2020-03-23 20:26] VITALS: BP 99/48
[2020-03-24] VITALS (14 sets, daily range): BP systolic 88–130; BP diastolic 35–64
--- NOTE | 2020-03-24 08:47 | OP ---
[address] [address] OPERATIVE REPORT Name: ROMIE APARICIO Room: [address] Shannan Nuñez#: [id number] Admission: 03/23/20 Attend Phys: Mariah Fernández DO Discharge: Date of : 34 Report #: [id number] THIS REPORT FOR: cc: Sagar Clemens Ahmad W. DO ~ Mariah Fernández DO DATE OF SERVICE: 03/23/2020 PREPROCEDURE DIAGNOSIS: Left breast cancer. POSTPROCEDURE DIAGNOSIS: Left breast cancer. FINDINGS: Palpable mass in the subareolar area. Uptake at the nipple on the Neoprobe was 2500, uptake on the sentinel lymph node was 2750. SURGEON: Mariah Fernández DO COSURGEON: Julio Breen, PGY-1. HYBRID POWERTRAIN DEVELOPMENT ENGINEER: RONNIE Jones. PROCEDURE PERFORMED: Left mastectomy, superficial left sentinel lymph node dissection. ANESTHESIA: LMA and local and a nerve block by Anesthesia. ESTIMATED BLOOD LOSS: 20 mL. DRAINS: 15-Nauruan JACOB drain. SPECIMENS: Left breast and left sentinel lymph node. COMPLICATIONS: None. CONDITION: Stable. DISPOSITION: PACU to the floor. HISTORY OF PRESENT ILLNESS: The patient is a very pleasant 84-year-old female who presented to my office with a palpable mass in her left breast. She underwent an ultrasound-guided biopsy, which was positive for left breast cancer. She was seen by Oncology and Radiation Oncology and decided to move forward with a left mastectomy and lymph node dissection. Risks discussed included bleeding, infection, pain, scar formation, need for further surgery and risks of anesthesia. The patient understood these risks [place] [address] OPERATIVE REPORT Name: ROMIE APARICIO Room: [address] Shannan Nuñez#: [id number] Admission: 03/23/20 Attend Phys: Mariah Fernández DO Discharge: Date of : 34 Report #: [id number] DESCRIPTION OF PROCEDURE: The patient initially presented to preop and was then taken to Radiology where she underwent a left breast nuclear medicine injection. She returned to pre where she underwent informed consent. She was taken to the operating room and laid supine on the operating room table. SCDs were placed on bilateral lower extremities. Ancef was given in the perioperative period. General LMA anesthesia was induced by Anesthesia without difficulty. 5mls of lymphazurin blue dye were injected in the periareolar area. Left chest and axilla were prepped and draped in standard sterile fashion. Timeout was performed to verify patient and procedure. I began by marking out the clavicle, the sternum, the latissimus dorsi and the inferior mammary fold. An elliptical incision was then marked out around the nipple. A 20 mL of 0.5% Marcaine were injected in the area of the planned incision. Incision was made with #15 blade. Cautery was used for hemostasis. Cautery was then used to create flaps, initially moving towards the clavicle, medially to the sternum, inferiorly to the inframammary fold and laterally to the latissimus dorsi. Allis clamps were used to gently elevate the breast tissue while it was then dissected from the pectoralis also using cautery. Specimen was marked in the superior and lateral direction and was handed off for permanent pathology. Neoprobe was brought onto the field and uptake at the nipple was 2500. Axilla was then interrogated. There was an area of very clear blue dye heading into the axilla. This was gently dissected until a large blue hot node was identified. Uptake on the Neoprobe was approximately 2750. This area was elevated using an Allis clamp and was dissected free using a combination of blunt and cautery dissection. This was then handed off as the left sentinel lymph node. Wound was copiously irrigated until clear. Hemostasis was assured. Carlos was placed throughout the wound. A 15-Nauruan JACOB drain was brought through the inferior flap. Wound was then closed in a layered fashion using deep and superficial stitches of 3-0 Vicryl in inverted interrupted fashion. Skin wound was closed with a running 4-0 Monocryl. A total of 30 mL of 0.5% Marcaine were used to anesthetize the wound. Wound was then cleansed and covered with Dermabond. Drain was sutured into place using a 3-0 nylon. Drain was covered with a 4 x 4 and a Tegaderm. The patient was then allowed to awake from anesthesia, was extubated and transported to the recovery room with no further difficulties. Surgical bra was placed in the operating room. Counts were correct x 2 at the conclusion of the case. <ELECTRONICALLY SIGNED> By: Mariah Fernández DO 03/24/20 0847 1515 1556Chrmanuela Fernández DO /nt
--- NOTE | 2020-03-25 17:07 | PATH ---
[address] [address] PATHOLOGY RPT PROCEDURE Name: MARTHA APARICIO Room: [address] Shannan Nuñez#: [id number] Admission: 03/23/20 Date of : 33 Discharge: 03/24/20 Report #: [id number] Path Case #: [id number] [facility] Accession Number: [id number] . 01 Material submitted: . PART A: breast - LEFT BREAST (SHORT: SUPERIOR; LONG: LATERAL). Modifiers: left PART B: lymph node - SENTINEL LYMPH NODE, LEFT BREAST. Modifiers: left . 01 Clinical history: . LEFT BREAST CANCER, INVASIVE DUCTAL CARCINOMA . 02 Diagnosis: A. Left breast: - INFILTRATING DUCTAL ADENOCARCINOMA, LOW GRADE, FORMING A MASS SPANNING 22 MM IMMEDIATELY BENEATH AND INVOLVING DERMIS OF NIPPLE AREOLAR COMPLEX, IN ASSOCIATION WITH CHANGES OF PRIOR BIOPSY, WITH ALL SURGICAL MARGINS WIDELY FREE OF INVOLVEMENT AND CLOSEST (INFERIOR) LOCATED 11 MM AWAY. SEE COMMENT. . B. [place] lymph node, left breast: - One of two lymph nodes with isolated tumor cells. See comment. . (BECKY:cheyanne; 03/25/2020) . . . Surgical Pathology Cancer Case Summary . INVASIVE CARCINOMA OF THE BREAST: Resection . Procedure ___ Total mastectomy . Specimen Laterality ___ Left . + Tumor Site + ___ Nipple areolar complex . Tumor Size ___ Greatest dimension of largest invasive focus >1 mm: 22 mm . Histologic Type ___ Invasive carcinoma of no special type (ductal) . Histologic Grade (Meir Histologic Score) . Glandular (Acinar)/[place] [address] PATHOLOGY RPT PROCEDURE Name: MARTHA APARICIO Room: [address]#: [id number] Admission: 03/23/20 Date of : 34 Discharge: 03/24/20 Report #: [id number] Path Case #: [id number] ___ Score 1 (>75% of tumor area forming glandular/tubular structures) . Nuclear Pleomorphism ___ Score 1 (nuclei small with little increase in size in comparison with normal breast epithelial cells, regular outlines, uniform nuclear chromatin, little variation in size) . Mitotic Rate ___ Score 1 . Overall Grade ___ Grade 1 (scores of 3, 4, or 5) . + Tumor Focality + ___ Single focus of invasive carcinoma . Ductal Carcinoma In Situ (DCIS) ___ Not identified . + Lobular Carcinoma In Situ (LCIS) + ___ Not identified . Tumor Extension Skin ___ Invasive carcinoma directly invades into the dermis or epidermis without skin ulceration (this does not change the T classification) . Nipple ___ DCIS does not involve the nipple epidermis . Skeletal Muscle ___ No skeletal muscle is present . Margins . Invasive Carcinoma Margins ___ Uninvolved by invasive carcinoma Distance from closest margin: ___ 11 mm . + Specify closest margin(s): Inferior . Regional Lymph Nodes ___ Involved by tumor cells . + Number of Lymph Nodes with Isolated Tumor Cells (<or=0.2mm to 2mm and/or <nd=175 cells): 1 . Total Number of Lymph Nodes Examined: 2 [place] [address] PATHOLOGY RPT PROCEDURE Name: MARTHA APARICIO [address]: [address] [id number] Admission: 03/23/20 Date of : 34 Discharge: 03/24/20 Report #: [id number] Path Case #: [id number] Number of [place] Lymph Nodes: 2 . Treatment Effect in the Breast ___ No known presurgical therapy . + Lymphovascular Invasion + ___ Not identified . + Dermal Lymphovascular Invasion + ___ Not identified . . PATHOLOGIC STAGE CLASSIFICATION (pTNM, AJCC 8th Edition) . Primary Tumor (pT) ___ pT2:Tumor greater than 20 mm but less than or equal to 50 mm in greatest dimension . Regional Lymph Nodes Modifier ___ (sn):[place] node(s) evaluated . Regional Lymph Nodes (pN) ___ pN0(i+): ITCs only in regional lymph nodes . + Additional Pathologic Findings: Seborrheic keratosis + Specify: Non-neoplastic breast with atrophic features . + Ancillary Studies . + ___ Breast Biomarker Testing Performed on Previous Biopsy + Testing Performed on , A1 . + Estrogen Receptor (ER) + ___ Positive (greater than 10% of cells demonstrate nuclear positivity) 95% . + Progesterone Receptor (PgR) + ___ Positive 8% . + HER2 (by immunohistochemistry) + ___ Negative (Score 1+) . + ___ Ki-67 percentage of positive nuclei: 4% . + Microcalcifications + ___ Not identified . (BECKY:cheyanne; 03/25/2020) [facility] 03/25/[address] [place] [address] PATHOLOGY RPT PROCEDURE Name: MARTHA APARICIO Room: [address] Shannan Nuñez#: [id number] Admission: 03/23/20 Date of : 34 Discharge: 03/24/20 Report #: [id number] Path Case #: [id number] . 02 Comment: The invasive tumor immediately abuts the epithelium of the nipple areolar complex, extensively involving the dermis. Focal perineural invasion is seen in A1. The non-neoplastic breast tissue shows prominent atrophic features. . Properly-controlled keratin AE1/AE3 stains performed on B1 is negative and in B2, highlights an isolated tumor cell aggregate. . (BECKY:cheyanne; 03/25/2020) . 02 Electronically signed: . Toan Pinedo MD, Pathologist NPI- [id number] . 01 Gross description: . A. The specimen is received in formalin, labeled "Martha Aparicio, left breast". Received is a 315 g mastectomy specimen oriented with a short suture designating the superior margin, and a long suture designating the lateral margin. The specimen measures 16.8 cm from medial to lateral, 14.9 cm from superior to inferior, and 4.0 cm from anterior to posterior. On the anterior aspect, there is an ellipse of skin present measuring 13.2 x 6.6 cm with an eccentrically located nipple and areolar complex, measuring 1.0 x 0.9 and 4.3 x 4.2 cm, respectively. On the nipple, there is a well-circumscribed, slightly raised and white-fitzgerald lesion measuring 0.6 x 0.4 cm. Adjacent to the areolar complex (at the approximate 3:00 position), there is a well-circumscribed, irregular in contour, flaky and pale fitzgerald lesion measuring 1.9 x 1.4 cm. The specimen is inked as follows: Superior/anterior-blue, inferior/anterior-green, posterior-black. Sectioning reveals a white-fitzgerald, firm mass immediately posterior and inferior to the nipple, measuring 1.4 x 1.2 x 0.9 cm, which grossly abuts the epidermis, and is 1.1 cm from the closest margin (inferior). This mass is located along the junction between the lower inner and lower outer quadrants. Sectioning through the remainder of the specimen reveals bright yellow fibrofatty cut surfaces, with a large amount of residual blue dye. No additional nodules or lesions are noted grossly. The specimen is submitted representatively as follows: . A1 perpendicular section through nipple A2 customer field representative section of lesion on nipple and adjacent lesion A3-A6 entire mass submitted from lateral to medial aspects A7 upper inner quadrant A8 lower inner quadrant A9 lower outer quadrant A10 upper outer quadrant. . The cold ischemic time is 2 minutes. The total formalin fixation time is [facility] [address] [place] [address] PATHOLOGY RPT PROCEDURE Name: MARTHA APARICIO Room: [address] [place]#: [id number] Admission: 03/23/20 Date of : 34 Discharge: 03/24/20 Report #: [id number] Path Case #: [id number] 31 hours and 20 minutes. . B. The specimen is received in formalin, labeled "Martha Aparicio, sentinel lymph node". Received is a segment of bright yellow lobulated tissue measuring 3.2 x 2.2 x 1.0 cm in greatest dimensions. Dissection and palpation of the specimen reveals two lymph nodes measuring 0.9 and 1.0 cm in maximum dimensions. Each lymph node is bisected and the specimen is submitted entirely in cassettes B1 and B2, with individual lymph nodes submitted in separate cassettes. Immunohistochemical stains are ordered. (CAA; 03/24/2020) QAC/QAC 03/25/2020 1338 Local . 02 Pathologist provided ICD-10: C50.912 . 02 CPT . 034684, 221750, M78048 Specimen Comment: A courtesy copy of this report has been sent to [phone], [phone] Specimen Comment: [phone] Specimen Comment: Report sent to / DR BENNETT Performed at: [address], [place], [place] [address] MD Domingo Ayers MD Phone: [phone] Performed at: [address] [address] [address], [place], [place] [address] MD Toan Pinedo MD Phone: [phone]
== END 2020-03-24 14:02 | disposition home health service (06) ==
LOC: M.PRE 06:23 → M.TBA 09:26 → M.PRE 12:26 → M.3W 16:55
PROVIDERS: ADMIT Surgery; ATTEND Surgery
DX: C50.912 Malignant neoplasm of unspecified site of left female breast (principal); Z79.899 Other long term (current) drug therapy

== ENCOUNTER → 2020-05-21 | Outpatient (CLI) | payer MEDICARE, OTHER ==
[2020-05-21 09:57] LABS: CHOLESTEROL 158 mg/dL (<200); HDL CHOLESTEROL 45 mg/dL (>40); LDL CHOLESTEROL 108 mg/dL (<100); TC:HDL 3.5 Ratio (Not establshd); TRIGLYCERIDE 29 mg/dL (<150); VLDL 6 mg/dL (<40)
[2020-05-21 09:58] LABS: SERUM ASSESSMENT Clear
== END ==
LOC: M.LAB 09:13
PROVIDERS: ATTEND Family Medicine
DX: E11.22 Type 2 diabetes mellitus with diabetic chronic kidney disease (principal); I13.0 Hypertensive heart and chronic kidney disease with heart failure and stage 1 through stage 4 chronic kidney disease, or unspecified chronic kidney disease; N18.30 Chronic kidney disease, stage 3 unspecified; I50.9 Heart failure, unspecified

== ENCOUNTER → 2020-06-15 | Outpatient (CLI) | payer MEDICARE, OTHER ==
[2020-06-15 13:37] LABS: ABSOLUTE EOSINOPHILS 0.2 thou/uL (0.0-0.7); ABSOLUTE LYMPHOCYTES 1.1 thou/uL (0.8-5.3); ABSOLUTE MONOCYTES 0.4 thou/uL (0.0-1.2); BASOPHILS 0.8 %; EOSINOPHILS 3.6 %; HEMATOCRIT 34.3 % (37.0-47.0); HEMOGLOBIN 11.6 gm/dL (12.0-15.0); LYMPHOCYTES 19.5 %; MCH 30.7 pg (26.0-34.0); MCHC 33.8 g/dL (28.0-37.0); MONOCYTES 7.3 %; MPV 8.7 fl. (7.2-11.1); NUCLEATED RBCS 0 /100WBC; PLATELET COUNT* 120 thou/uL (150-400); POLYS 68.8 %; RBC 3.76 mil/uL (4.20-5.00); RDW-CV 12.7 % (10.5-14.5); WBC 5.8 thou/uL (4.0-11.0)
[2020-06-15 13:47] LABS: ALBUMIN 3.7 g/dL (3.4-5.0); CALCIUM 9.8 mg/dL (8.5-10.1); CREATININE 1.6 mg/dL (0.6-1.3); PHOSPHORUS* 3.2 mg/dL (2.5-4.9)
[2020-06-15 14:07] LABS: CALCIUM 9.5 mg/dL (8.5-10.1); CREATININE 1.7 mg/dL (0.6-1.3); PHOSPHORUS* 3.2 mg/dL (2.5-4.9)
== END ==
LOC: M.LAB 12:56
PROVIDERS: ATTEND Internal Medicine Nephrology
DX: N18.30 Chronic kidney disease, stage 3 unspecified (principal)

== ENCOUNTER → 2020-07-29 | Outpatient (CLI) | payer MEDICARE, OTHER ==
[2020-07-29 09:46] LABS: CALCIUM 9.6 mg/dL (8.5-10.1); CREATININE 1.4 mg/dL (0.6-1.3); MAGNESIUM 2.1 mg/dL (1.8-2.4); POTASSIUM 4.8 mmol/L (3.5-5.1)
== END ==
LOC: M.LAB 09:13
PROVIDERS: ATTEND Family Medicine
DX: I13.0 Hypertensive heart and chronic kidney disease with heart failure and stage 1 through stage 4 chronic kidney disease, or unspecified chronic kidney disease (principal); I50.32 Chronic diastolic (congestive) heart failure; N18.30 Chronic kidney disease, stage 3 unspecified

== ENCOUNTER → 2020-08-02 | Outpatient (CLI) | payer MEDICARE, OTHER | LOC: M.RAD 07-30 13:30 | PROVIDERS: ATTEND Internal Medicine Hematology & Oncology | DX: M85.88 Other specified disorders of bone density and structure, other site (principal); Z79.811 Long term (current) use of aromatase inhibitors ==

== ENCOUNTER → 2020-08-05 | Outpatient (CLI) | payer MEDICARE, OTHER ==
[2020-08-05 14:06] LABS: CALCIUM 10.6 mg/dL (8.5-10.1); CREATININE 1.4 mg/dL (0.6-1.3); POTASSIUM 4.4 mmol/L (3.5-5.1)
== END ==
LOC: M.LAB 13:35
PROVIDERS: ATTEND Registered Nurse
DX: I48.20 Chronic atrial fibrillation, unspecified (principal); I11.0 Hypertensive heart disease with heart failure; I50.32 Chronic diastolic (congestive) heart failure

== ENCOUNTER → 2020-08-09 | Outpatient (CLI) | payer MEDICARE, OTHER ==
[2020-08-09 14:47] LABS: CALCIUM 9.8 mg/dL (8.5-10.1); CREATININE 1.6 mg/dL (0.6-1.3)
== END ==
LOC: M.LAB 13:42
PROVIDERS: ATTEND Internal Medicine Cardiovascular Disease
DX: I11.0 Hypertensive heart disease with heart failure (principal); I50.32 Chronic diastolic (congestive) heart failure

== ENCOUNTER 2020-08-16 21:30 | Inpatient (IN) | payer MEDICARE, OTHER ==
[~2020-08-16] VITALS: Ht 154.9 cm; Wt 66.2 kg
[~2020-08-16 21:30] MED LIST changes: -PANTOPRAZOLE SO40 M1 PO; +PROTONIX40 M3 PO
[2020-08-16 21:43] VITALS: BP 141/53
[2020-08-16 22:19] LABS: ABSOLUTE BASOPHILS 0.1 thou/uL (0.0-0.2); ABSOLUTE EOSINOPHILS 0.2 thou/uL (0.0-0.7); ABSOLUTE LYMPHOCYTES 1.3 thou/uL (0.8-5.3); ABSOLUTE MONOCYTES 0.9 thou/uL (0.0-1.2); ABSOLUTE NEUTROPHILS 5.4 thou/uL (1.6-8.1); BASOPHILS 0.8 %; EOSINOPHILS 2.3 %; HEMATOCRIT 31.7 % (37.0-47.0); HEMOGLOBIN 10.8 gm/dL (12.0-15.0); LYMPHOCYTES 17.1 %; MCH 30.5 pg (26.0-34.0); MCHC 34.1 g/dL (28.0-37.0); MCV 89.5 fL (80.0-100.0); MONOCYTES 11.4 %; NUCLEATED RBCS 0 /100WBC; PLATELET COUNT* 192 thou/uL (150-400); POLYS 68.4 %; RBC 3.54 mil/uL (4.20-5.00); RDW-CV 13.1 % (10.5-14.5); WBC 7.9 thou/uL (4.0-11.0)
[2020-08-16 22:27] LABS: CALCIUM 9.6 mg/dL (8.5-10.1); CREATININE 1.5 mg/dL (0.6-1.3); POTASSIUM 3.7 mmol/L (3.5-5.1)
[2020-08-16 22:28] LABS: APTT 27.5 Seconds (25.0-31.3); INR 1.1; PROTIME 11.2 Seconds (9.20-11.50)
[2020-08-16 22:40] LABS: ALBUMIN 3.5 g/dL (3.4-5.0); CK-MB MASS 1.7 ng/mL (<0.5-3.6); MAGNESIUM 2.2 mg/dL (1.8-2.4); TOTAL BILIRUBIN 0.6 mg/dL (<0.1-1.0)
[2020-08-17] VITALS (7 sets, daily range): BP systolic 100–156; BP diastolic 41–59
[2020-08-17] MEDS ORDERED: MAGNESIUM250 M1 PO (01:55)
[2020-08-17] MEDS ORDERED: SPIRONOLACTONE25 MG PO (01:55)
[2020-08-17] MEDS ORDERED: MINOXIDIL2.5 MG PO (01:57)
[2020-08-17] MEDS ORDERED: ARIMIDEX1 MG PO (02:16)
--- NOTE | 2020-08-17 08:32 | EKG ---
[place] [address] ELECTROCARDIOGRAM REPORT Name: ROMIE APARICIO Room: [address] ADM IN ..#: [id number] Admission: 08/16/20 Attend Phys: Masha Patrick MD Discharge: Date of : 33 Date of Service: 08/16/202144 Report #: [id number] THIS REPORT FOR: //name// [facility] ED Test Date: 2020-08-16 Test Time: 21:45:03 Pat Name: ROMIE APARICIO Department: Room: [facility] Gender: F [employer]raiser [employer]: SAUL : 1935 Requested By: Devonte Montano Order Number: [id number] MD: Ganesh Joaquin Measurements Intervals Satin Rate: 62 P: NH: QRS: 107 QRSD: 131 T: -52 QT: 451 QTc: 458 Interpretive Statements Atrial fibrillation RBBB and LPFB Anteroseptal infarct, age indeterminate Compared to ECG 03/23/2020 11:04:59 No significant changes Electronically Signed On 08-17-2020 8:32:44 CDT by Ganesh Joaquin [email or web address] <ELECTRONICALLY SIGNED> By: Ganesh Joaquin MD, FACC 08/17/20 0832 2145 2145 Ganesh Joaquin MD, FAC /EPI
--- NOTE | 2020-08-17 16:12 | 2DMMODE ---
[place] [address] 2 D/M-MODE ECHOCARDIOGRAM Name: ROMIE APARICIO Room: [address] IN [facility]#: [id number] Admission: 08/16/20 Attend Phys: Masha Patrick MD Discharge: Date of : 33 Date of Service: 08/17/20 1612 Report #: [id number] THIS REPORT FOR: cc: Sagar Clemens,Ganesh Barrera MD [facility] ~ APPROVED REPORT Study performed: 08/17/2020 11:32:35 EXAM: Comprehensive 2D, Doppler, and color-flow Echocardiogram Patient Location: In-Patient Room #: 207 Status: routine BSA: 1.69 HR: 53 bpm BP: 132/51 mmHg Rhythm: Atrial Fibrillation Other Information Study Quality: Good Indications Dyspnea Echo Enhancing Agent Indication: Rule out Shunt Agent(s) / Amount(s) Used: Agitated Saline 10 cc 2D Dimensions IVSd: 7.28 (7-11mm) LVOT Diam: 17.80 (18-24mm) LVDd: 37.94 mm PWd: 9.84 (7-11mm) Ascending Ao: 30.44 (22-36mm) LVDs: 16.97 (25-40mm) Aortic Root: 28.61 mm Volumes Left Atrial Volume (Systole) LA ESV Index: 38.10 mL/m2 Aortic Valve AoV Peak Shaun.: 1.19 m/s AO Peak Gr.: 5.66 mmHg LVOT Max P.27 mmHg AO Mean Gr.: 3.60 mmHg LVOT Mean P.21 [place] [address] 2 D/M-MODE ECHOCARDIOGRAM Name: ROMIE APARICIO Room: [address] IN [facility]#: [id number] Admission: 08/16/20 Attend Phys: Masha Patrick MD Discharge: Date of : 33 Date of Service: 08/17/20 1612 Report #: [id number] LVOT Max V: 1.03 m/s AO V2 VTI: 29.22 cm LVOT Mean V: 0.69 m/s MIGUEL ANGEL (VTI): 1.98 cm2 LVOT V1 VTI: 23.24 cm TDI Medial E' Shaun.: 0.05 m/s Lateral E' Shaun.: 0.09 m/s Pulmonary Valve PV Peak Shaun.: 1.26 m/s PV Peak Gr.: 6.34 mmHg Tricuspid Valve RAP Estimate: 15.00 mmHg TR Peak Gr.: 41.86 mmHg RVSP: 56.00 mmHg PA Pressure: 56.00 mmHg Left Ventricle The left ventricle is normal size. There is normal LV segmental wall motion. "D" shaped septum noted consistent with pulmonary hypertension. Mild concentric left ventricular hypertrophy. Left ventricular systolic function is normal. LVEF is 65-70%. This study is not technically sufficient to allow evaluation of the LV diastolic function due to atrial fibrillation. Right Ventricle Right ventricle is mildly dilated. The right ventricular systolic function is normal. Atria Left atrium is moderately dilated. Right atrium is moderately dilated. Aortic Valve Mild aortic valve sclerosis. No aortic regurgitation is present. There is no aortic valvular stenosis. Mitral Valve There is mitral annular calcification. Mild mitral regurgitation. No evidence of mitral valve stenosis. Tricuspid Valve The tricuspid valve is normal in structure. Moderate tricuspid regurgitation. The RVSP is 65 mmHg. Pulmonic Valve The pulmonary valve is normal in structure. [place] [address] 2 D/M-MODE ECHOCARDIOGRAM Name: ROMIE APARICIO Room: [address] IN [facility]#: [id number] Admission: 08/16/20 Attend Phys: Masha Patrick MD Discharge: Date of : 33 Date of Service: 08/17/20 1612 Report #: [id number] regurgitation. Great Vessels The aortic root is normal in size. IVC is dilated and collapses <50% with inspiration. Pericardium There is no pericardial effusion. <Conclusion> The left ventricle is normal size. Mild concentric left ventricular hypertrophy. Left ventricular systolic function is normal. LVEF is 65-70%. Right ventricle is mildly dilated. Left atrium is moderately dilated. Right atrium is moderately dilated. Mild aortic valve sclerosis. There is mitral annular calcification. Mild mitral regurgitation. Moderate tricuspid regurgitation. The RVSP is 65 mmHg. Moderate pulmonic regurgitation. IVC is dilated and collapses <50% with inspiration. "D" shaped septum noted consistent with pulmonary hypertension. <ELECTRONICALLY SIGNED> By: Ganesh Joaquin MD, FACC 08/17/20 161 161 11 Ganesh Joaquin MD, FACC /INF
[2020-08-18 04:11] VITALS: BP 100/51
[2020-08-18 05:04] LABS: HEMATOCRIT 30.5 % (37.0-47.0); HEMOGLOBIN 10.4 gm/dL (12.0-15.0); MCH 30.8 pg (26.0-34.0); MCHC 34.2 g/dL (28.0-37.0); MPV 8.2 fl. (7.2-11.1); RBC 3.39 mil/uL (4.20-5.00); RDW-CV 13.5 % (10.5-14.5); WBC 6.3 thou/uL (4.0-11.0)
[2020-08-18 05:20] LABS: ALBUMIN 2.9 g/dL (3.4-5.0); CREATININE 1.3 mg/dL (0.6-1.3); MAGNESIUM 1.9 mg/dL (1.8-2.4); POTASSIUM 3.6 mmol/L (3.5-5.1); TOTAL BILIRUBIN 0.6 mg/dL (<0.1-1.0); TOTAL PROTEIN 6.3 g/dL (6.4-8.2)
[2020-08-18 07:50] VITALS: BP 112/40
[2020-08-18 14:32] VITALS: BP 101/46
[2020-08-18 16:32] VITALS: BP 107/51
[2020-08-18 20:30] VITALS: BP 115/35
[2020-08-18 23:47] VITALS: BP 144/45
[2020-08-19] VITALS (15 sets, daily range): BP systolic 103–137; BP diastolic 38–64
[2020-08-19 04:09] LABS: HEMATOCRIT 30.7 % (37.0-47.0); HEMOGLOBIN 10.5 gm/dL (12.0-15.0); MCH 31.1 pg (26.0-34.0); MCHC 34.2 g/dL (28.0-37.0); MCV 90.9 fL (80.0-100.0); MPV 8.7 fl. (7.2-11.1); RBC 3.38 mil/uL (4.20-5.00); RDW-CV 13.4 % (10.5-14.5)
[2020-08-19 04:34] LABS: CALCIUM 9.1 mg/dL (8.5-10.1); CREATININE 1.3 mg/dL (0.6-1.3); TOTAL BILIRUBIN 0.5 mg/dL (<0.1-1.0); TOTAL PROTEIN 6.2 g/dL (6.4-8.2)
[2020-08-19] MEDS ORDERED: SPIRONOLACTONE25 MG PO (10:04)
[2020-08-19 12:24] LABS: BE 0.8 mmol/L (-2 to +3); PCO2 VENOUS 45.2 mmHg (41.0-51.0); PO2 VENOUS 36.1 mmHg (35.0-45.0)
[2020-08-19 12:25] LABS: BE -0.5 mmol/L (-2 to +3); PCO2 32.6 mmHg (35.0-45.0); PO2 84.6 mmHg (75.0-100.0)
[2020-08-19 12:29] LABS: BE 0 mmol/L (-2 to +3); PCO2 VENOUS 39.8 mmHg (41.0-51.0); PO2 VENOUS 41.9 mmHg (35.0-45.0)
[2020-08-19 12:31] LABS: BE 3.4 mmol/L (-2 to +3); PCO2 VENOUS 49.2 mmHg (41.0-51.0); PO2 VENOUS 38.5 mmHg (35.0-45.0)
[2020-08-19 12:33] LABS: BE -0.6 mmol/L (-2 to +3); PCO2 VENOUS 43.4 mmHg (41.0-51.0); PO2 VENOUS 35.1 mmHg (35.0-45.0)
[2020-08-19 12:34] LABS: BE 0.6 mmol/L (-2 to +3); PCO2 VENOUS 42.1 mmHg (41.0-51.0); PO2 VENOUS 41.6 mmHg (35.0-45.0)
--- NOTE | 2020-08-26 09:24 | CARD ---
[address] [address] CARDIAC CATH REPORT Name: ROMIE APARICIO Room: [address]#: [id number] Admission: 08/16/20 Attend Phys: Masha Patrick MD Discharge: 08/19/20 Date of : 34 Report #: [id number] THIS REPORT FOR: cc: Sagar Clemens Ahmad W. DO Liston, Michael J. MD [facility] ~ ADDENDUM APPROVED REPORT Study performed: 08/19/2020 11:28:33 Patient Details Patient Status: In-Patient Room #: 207 The patient is a 85 year-old female Event Personnel Ganesh Joaquin Machine Cage Maker, Hortencia Carlton RN Mill Operator Helper, Arsenio Little MANAGER HOUSEKEEPING Monitor, Maia Austin RTR Scrub Procedures Performed Bandar Access - R femoral vein Right Heart Cath Only [id number] [facility] Hemostasis w/ Mynx Indication Pulmonary hypertension Procedure Narrative The patient was brought electively to the Cardiac Catheterization Laboratory and was prepped and draped in a sterile manner. The right femoral area was infiltrated with 2% Lidocaine subcutaneous anesthesia. IV conscious sedation was used throughout procedure with appropriate monitoring and was performed in the presence of a registered nurse who was an independent trained observer other than the physician performing the procedure. A Right Heart Catheterization was performed with a 6 Fr. [place] catheter and pressure were recorded. Cardiac outputs were obtained by the Thermal Dilution method. A 7F sheath was inserted into the RFV. Coronary angiography was performed using coronary diagnostic catheters. The patient tolerated the procedure well and there were no complications associated with the procedure. There was no hematoma. Intraoperative Conscious Sedation Sedation start time: 11:46 Case end Time: 12:10 Fentanyl 25 mcg Versed 1 [place] [address] CARDIAC CATH REPORT Name: ROMIE APARICIO Room: [address]#: [id number] Admission: 08/16/20 Attend Phys: Masha Patrick MD Discharge: 08/19/20 Date of : 34 Report #: [id number] Dose: 166 mGy Hemodynamics The right atrial mean pressure is 12 mmHg. The right ventricular pressure is 80/5 mmHg. The pulmonary artery pressure is 80/15 mmHg with a mean of mmHg. The mean pulmonary capillary wedge pressure is 13 mmHg. The cardiac output using thermo method is 3.63 L/min. The cardiac index using thermo method is 2.20 L/min/m2. O2 Sats: FA 95.6. PA 77, RV 69.5, RA 77.7, SVC 72.4, IVC 69.9 Conclusion 1. Moderate to severe pulmonary hypertension. 2. O2 saturations would suggest [id number] shunting. Recommendations 1. Consider transesophageal echocardiogram to further localize shunt. <ELECTRONICALLY SIGNED> By: Ganesh Joaquin MD, FACC 08/26/20923 3 3Michaefranki Joaquin MD, FACC /INF
--- NOTE | 2020-08-28 09:07 | CON ---
[address] [address] CONSULTATION Name: OUMOUSHONALFREDROMIE Emilia Room: [address] IN .R.#: [id number] Admission: 08/16/20 Attend Phys: Masha Patrick MD Discharge: 08/19/20 Date of : 34 Report #: [id number] THIS REPORT FOR: cc: Sagar Clemens Ahmad W. DO Arakelov, Alexandr V. MD ~ DOC #: [id number] Ar Rosenberg MD DATE OF CONSULTATION: 08/18/2020 REQUESTING PHYSICIAN: Dr. James. REASON FOR CONSULTATION: Acute kidney injury on top of the chronic kidney disease. HISTORY OF PRESENT ILLNESS: The patient is a very pleasant 85-year-old lady follows with me in my office for chronic kidney disease. She presents with complaints of chest pressure. Recently we have been trying to adjust her diuretics. Her Bumex was increased to 2 mg a day and she has been using metolazone on an as needed basis. Her creatinine was 1.5, but now down to 1.3, which is her baseline. Her serum sodium is around 130 to 132, this is her baseline as well. OTHER MEDICAL HISTORY: Includes cardiomegaly, hypertension, diabetes mellitus type 2. SOCIAL HISTORY: She does not smoke cigarettes, does not drink alcohol. FAMILY HISTORY: No history of renal disease. MEDICATIONS: Reviewed. She is on Bumex 2 mg once a day and p.r.n. metolazone, potassium supplements, insulin, minoxidil, Plavix. REVIEW OF SYSTEMS: Positive for some chest pressure and some periodic lower extremity edema which has resolved now. Rest of the systems negative. PHYSICAL EXAMINATION: GENERAL: Alert, oriented, no acute distress. VITAL SIGNS: Blood pressure 112/40, heart rate 67, afebrile. HEENT: Pupils are round. NECK: Supple. LUNGS: Clear. CARDIOVASCULAR Regular rate. ABDOMEN: Soft. EXTREMITIES: Lower extremities, [place] [address] CONSULTATION Name: ROMIE APARICIO Room: [address]#: [id number] Admission: 08/16/20 Attend Phys: Masha Patrick MD Discharge: 08/19/20 Date of : 34 Report #: [id number] ASSESSMENT: 1. Acute kidney injury, resolved. 2. Chronic kidney disease stage III. Renal function at baseline. 3. Chronic hyponatremia, stable. 4. Acute on chronic diastolic heart failure. Cardiology is on the case. 5. Diabetes mellitus, controlled. 6. Pulmonary hypertension. PLAN: Overall, she is doing well. Plan is to follow her labs to make sure she is euvolemic and cardiology workup is in progress. MD MIGUEL ANGEL George/RICK/CONNER <ELECTRONICALLY SIGNED> By: Ar Rosenberg MD 08/28/20906 8 Alexacandida Rosenberg MD /nt
== END 2020-08-19 19:00 | disposition home or self-care (01) | DRG 286 ==
LOC: M.ERS 21:30 → M.TBA-ER 23:38 → M.2W 23:38
PROVIDERS: Family Medicine; Internal Medicine; Internal Medicine Cardiovascular Disease; Internal Medicine Nephrology; ADMIT Family Medicine; ATTEND Family Medicine
PROC: 4A023N6 Measurement of Cardiac Sampling and Pressure, Right Heart, Percutaneous Approach (ICD-10-PCS; principal; 2020-08-19)
PROC: B2111ZZ Fluoroscopy of Multiple Coronary Arteries using Low Osmolar Contrast (ICD-10-PCS; principal; 2020-08-19)
DX: I13.0 Hypertensive heart and chronic kidney disease with heart failure and stage 1 through stage 4 chronic kidney disease, or unspecified chronic kidney disease (principal); I50.33 Acute on chronic diastolic (congestive) heart failure; J96.01 Acute respiratory failure with hypoxia; I48.20 Chronic atrial fibrillation, unspecified; N17.9 Acute kidney failure, unspecified; E87.1 Hypo-osmolality and hyponatremia; Z20.822 Contact with and (suspected) exposure to COVID-19; N18.30 Chronic kidney disease, stage 3 unspecified; F32.9 Major depressive disorder, single episode, unspecified; M19.90 Unspecified osteoarthritis, unspecified site; K57.90 Diverticulosis of intestine, part unspecified, without perforation or abscess without bleeding; E11.42 Type 2 diabetes mellitus with diabetic polyneuropathy; E11.51 Type 2 diabetes mellitus with diabetic peripheral angiopathy without gangrene; K21.9 Gastro-esophageal reflux disease without esophagitis; E11.22 Type 2 diabetes mellitus with diabetic chronic kidney disease; I27.20 Pulmonary hypertension, unspecified; D64.9 Anemia, unspecified; I25.10 Atherosclerotic heart disease of native coronary artery without angina pectoris; E11.649 Type 2 diabetes mellitus with hypoglycemia without coma; I65.29 Occlusion and stenosis of unspecified carotid artery; Z90.710 Acquired absence of both cervix and uterus; Z98.49 Cataract extraction status, unspecified eye; Z90.49 Acquired absence of other specified parts of digestive tract; Z88.2 Allergy status to sulfonamides; Z88.8 Allergy status to other drugs, medicaments and biological substances; Z95.5 Presence of coronary angioplasty implant and graft

== ENCOUNTER → 2020-08-25 | Outpatient (CLI) | payer MEDICARE, OTHER ==
[~2020-08-25] MED LIST changes: +ARIMIDEX1 MG PO; +MAGNESIUM250 M1 PO; +SPIRONOLACTONE25 MG PO
[2020-08-25 11:36] LABS: CREATININE 1.2 mg/dL (0.6-1.3); POTASSIUM 4.3 mmol/L (3.5-5.1)
== END ==
LOC: M.LAB 11:15
PROVIDERS: ATTEND Registered Nurse
DX: I50.32 Chronic diastolic (congestive) heart failure (principal)

== ENCOUNTER → 2020-09-02 | Outpatient (CLI) | payer MEDICARE, OTHER ==
[2020-09-02 11:56] LABS: CALCIUM 9.7 mg/dL (8.5-10.1); CREATININE 1.2 mg/dL (0.6-1.3); POTASSIUM 4.7 mmol/L (3.5-5.1)
== END ==
LOC: M.LAB 11:29
PROVIDERS: ATTEND Internal Medicine Cardiovascular Disease
DX: I50.32 Chronic diastolic (congestive) heart failure (principal); I13.0 Hypertensive heart and chronic kidney disease with heart failure and stage 1 through stage 4 chronic kidney disease, or unspecified chronic kidney disease; N18.30 Chronic kidney disease, stage 3 unspecified

== ENCOUNTER → 2020-09-23 | Outpatient (CLI) | payer MEDICARE, OTHER ==
[2020-09-23] VITALS (13 sets, daily range): BP systolic 98–180; BP diastolic 40–80
[2020-09-23 10:37] LABS: CREATININE 1.1 mg/dL (0.6-1.3); POTASSIUM 5.5 mmol/L (3.5-5.1)
--- NOTE | 2020-09-24 17:35 | TEE ---
[place] [address] TRANSESOPHAGEAL ECHOCARDIOGRAM Name: ROMIE APARICIO Room: [facility]#: [id number] Admission: 09/23/20 Attend Phys: Ganesh Joaquin, Discharge: Date of : 33 Date of Service: 09/24/20 1734 Report #: [id number] THIS REPORT FOR: cc: Sagar Clemens Ahmad W. DO Liston, Michael J. MD [facility] ~ APPROVED REPORT Study performed: 09/23/2020 10:25:24 EXAM: Transesophageal Echocardiogram Patient Location: Out-Patient Status: routine BSA: 1.59 HR: 79 bpm BP: 165/64 mmHg Rhythm: NSR Other Information Study Quality: Good Indications shunt Echo Enhancing Agent Indication: Rule out Shunt Agent(s) / Amount(s) Used: Agitated Saline 10 cc Procedure After obtaining informed consent, patient underwent transesophageal echo in the Bedside. Type of Sedation : Conscious Sedation Sedation was administered by Hortencia Carlton RN. Sedation start time: 1102 Case end Time: 1125 Sedation was achieved intravenously with: Versed (2) Fentanyl (50) Transesophageal probe was inserted and advanced into esophagus without difficulty by Ganesh Joaquin MD, FAC. Echo enhancement indication: R/O Septal defect. Echo enhancement agent administered: Agitated Saline The DAGO was performed without complications. Throughout the procedure, the blood pressure, pulse oximetry, cardiac rhythm, and rate were monitored. The patient tolerated the procedure without [place] [address] TRANSESOPHAGEAL ECHOCARDIOGRAM Name: ROMIE APARICIO Room: [facility]#: [id number] Admission: 09/23/20 Attend Phys: Ganesh Joaquin, Discharge: Date of : 34 Date of Service: 09/24/20 1734 Report #: [id number] from conscious sedation was uneventful and vital signs were stable. Left Ventricle The left ventricle is normal size. There is normal LV segmental wall motion. There is normal left ventricular wall thickness. Left ventricular systolic function is normal. LVEF is 65-70%. Right Ventricle Right ventricle is mildly dilated. The right ventricular systolic function is normal. Atria Left atrium is moderately dilated. No thrombus is visualized in the left atrium or appendage. Injection of agitated saline shows evidence of right to left shunt. Color Doppler evaluation of the atrial and ventricular septum shows no evidence of PFO, ASD or VSD. Right atrium is moderately dilated. Aortic Valve Mild aortic valve sclerosis. No aortic regurgitation is present. There is no aortic valvular stenosis. Mitral Valve There is mitral annular calcification. Mild mitral regurgitation. No evidence of mitral valve stenosis. Tricuspid Valve The tricuspid valve is normal in structure. Mild tricuspid regurgitation. Pulmonic Valve The pulmonary valve is normal in structure. Moderate pulmonic regurgitation. Great Vessels The aortic root is normal in size. Pericardium There is no pericardial effusion. <Conclusion> The left ventricle is normal size. There is normal left ventricular wall thickness. Left ventricular systolic function is normal. LVEF is 65-70%. [place] [address] TRANSESOPHAGEAL ECHOCARDIOGRAM Name: ROMIE APARICIO Emilia Room: [facility]#: [id number] Admission: 09/23/20 Attend Phys: Ganesh Joaquin, Discharge: Date of : 33 Date of Service: 09/24/20 173 Report #: [id number] Right ventricle is mildly dilated. Left atrium is moderately dilated. No thrombus is visualized in the left atrium or appendage. Right atrium is moderately dilated. Mild aortic valve sclerosis. Mild mitral regurgitation. Mild tricuspid regurgitation. Moderate pulmonic regurgitation. Injection of agitated saline shows evidence of right to left shunt. Color Doppler evaluation of the atrial and ventricular septum shows no evidence of PFO, ASD or VSD. <ELECTRONICALLY SIGNED> By: Ganesh Joaquin MD, [facility] 09/24/20 1734 173 1734 Ganesh Joaquin MD, FACC /INF
== END | disposition home or self-care (01) ==
LOC: M.LAB 09:43 → M.CL 09:43
PROVIDERS: ATTEND Internal Medicine Cardiovascular Disease
DX: I48.91 Unspecified atrial fibrillation (principal); I08.1 Rheumatic disorders of both mitral and tricuspid valves; I50.9 Heart failure, unspecified; Z98.890 Other specified postprocedural states; Z79.899 Other long term (current) drug therapy; Z88.2 Allergy status to sulfonamides; Z88.8 Allergy status to other drugs, medicaments and biological substances; Z85.3 Personal history of malignant neoplasm of breast

== ENCOUNTER → 2020-10-06 | Outpatient (CLI) | payer MEDICARE, OTHER ==
[2020-10-06 14:06] LABS: CALCIUM 10.8 mg/dL (8.5-10.1); CREATININE 1.1 mg/dL (0.6-1.3); POTASSIUM 5.3 mmol/L (3.5-5.1)
== END ==
LOC: M.LAB 09-28 10:53
PROVIDERS: ATTEND Registered Nurse
DX: I77.1 Stricture of artery (principal); I51.7 Cardiomegaly; I27.20 Pulmonary hypertension, unspecified

== ENCOUNTER → 2020-10-27 | Outpatient (CLI) | payer MEDICARE, OTHER ==
[2020-10-27 14:54] LABS: ABSOLUTE BASOPHILS 0.1 thou/uL (0.0-0.2); ABSOLUTE EOSINOPHILS 0.2 thou/uL (0.0-0.7); ABSOLUTE LYMPHOCYTES 1.4 thou/uL (0.8-5.3); ABSOLUTE MONOCYTES 0.6 thou/uL (0.0-1.2); ABSOLUTE NEUTROPHILS 4.8 thou/uL (1.6-8.1); EOSINOPHILS 2.8 %; HEMATOCRIT 32.7 % (37.0-47.0); HEMOGLOBIN 11.3 gm/dL (12.0-15.0); LYMPHOCYTES 19.7 %; MCH 31.5 pg (26.0-34.0); MCHC 34.5 g/dL (28.0-37.0); MCV 91.1 fL (80.0-100.0); MONOCYTES 8.3 %; NUCLEATED RBCS 0 /100WBC; PLATELET COUNT* 176 thou/uL (150-400); POLYS 68.2 %; RBC 3.59 mil/uL (4.20-5.00); RDW-CV 13.8 % (10.5-14.5)
[2020-10-27 15:07] LABS: ALBUMIN 3.6 g/dL (3.4-5.0); CALCIUM 9.8 mg/dL (8.5-10.1); CREATININE 1.3 mg/dL (0.6-1.3); PHOSPHORUS* 3.2 mg/dL (2.5-4.9)
[2020-10-27 15:37] LABS: CALCIUM 10.1 mg/dL (8.5-10.1); CREATININE 1.3 mg/dL (0.6-1.3); PHOSPHORUS* 3.3 mg/dL (2.5-4.9)
== END ==
LOC: M.LAB 14:24
PROVIDERS: ATTEND Internal Medicine Cardiovascular Disease
DX: I50.32 Chronic diastolic (congestive) heart failure (principal); I27.20 Pulmonary hypertension, unspecified; N18.30 Chronic kidney disease, stage 3 unspecified

== ENCOUNTER 2020-12-06 09:23 | Emergency (ER) | payer MEDICARE, OTHER ==
[~2020-12-06] VITALS: Ht 154.9 cm; Wt 59.0 kg
[2020-12-06] MEDS ORDERED: ARIMIDEX1 MG PO (09:46)
[2020-12-06] MEDS ORDERED: TYLENOL ARTHRI650 MG PO (09:47)
[2020-12-06] MEDS ORDERED: CEPHALEXIN500 MG PO (10:39)
[2020-12-06] MEDS ORDERED: DOXYCYCLINE 10100 MG PO (10:39)
[2020-12-06 11:05] VITALS: BP 156/67
== END 2020-12-06 11:06 | disposition home or self-care (01) ==
LOC: M.ERS 09:23
DX: S51.812A Laceration without foreign body of left forearm, initial encounter (principal); S70.02XA Contusion of left hip, initial encounter; E11.22 Type 2 diabetes mellitus with diabetic chronic kidney disease; I50.9 Heart failure, unspecified; I48.91 Unspecified atrial fibrillation; F32.9 Major depressive disorder, single episode, unspecified; K21.9 Gastro-esophageal reflux disease without esophagitis; N18.9 Chronic kidney disease, unspecified; M19.90 Unspecified osteoarthritis, unspecified site; Z90.710 Acquired absence of both cervix and uterus; Z90.49 Acquired absence of other specified parts of digestive tract; Z85.828 Personal history of other malignant neoplasm of skin; Z79.899 Other long term (current) drug therapy; Z79.891 Long term (current) use of opiate analgesic; Z79.4 Long term (current) use of insulin; Z88.2 Allergy status to sulfonamides; Z88.8 Allergy status to other drugs, medicaments and biological substances; W20.8XXA Other cause of strike by thrown, projected or falling object, initial encounter; Y93.89 Activity, other specified; Y92.89 Other specified places as the place of occurrence of the external cause; Y99.8 Other external cause status

== ENCOUNTER → 2021-01-25 | Outpatient (CLI) | payer MEDICARE, OTHER ==
[~2021-01-25] MED LIST changes: +CEPHALEXIN500 MG PO; +DOXYCYCLINE 10100 MG PO; +TYLENOL ARTHRI650 MG PO
[2021-01-25 11:28] LABS: ALBUMIN 3.8 g/dL (3.4-5.0); CREATININE 1.2 mg/dL (0.6-1.3); POTASSIUM 5.1 mmol/L (3.5-5.1); TOTAL BILIRUBIN 0.5 mg/dL (<0.1-1.0); TOTAL PROTEIN 7.8 g/dL (6.4-8.2)
== END ==
LOC: M.RAD 09:41
PROVIDERS: ATTEND Surgery
DX: C50.012 Malignant neoplasm of nipple and areola, left female breast (principal); M17.12 Unilateral primary osteoarthritis, left knee; I11.0 Hypertensive heart disease with heart failure; I50.32 Chronic diastolic (congestive) heart failure; I48.20 Chronic atrial fibrillation, unspecified; M25.562 Pain in left knee; M79.641 Pain in right hand; M25.462 Effusion, left knee; M85.88 Other specified disorders of bone density and structure, other site; I70.90 Unspecified atherosclerosis; Z17.0 Estrogen receptor positive status [ER+]; Z90.12 Acquired absence of left breast and nipple

== ENCOUNTER → 2021-03-30 | Outpatient (CLI) | payer MEDICARE, OTHER ==
[2021-03-30 10:29] LABS: ABSOLUTE BASOPHILS 0.1 thou/uL (0.0-0.2); ABSOLUTE EOSINOPHILS 0.1 thou/uL (0.0-0.7); ABSOLUTE LYMPHOCYTES 0.7 thou/uL (0.8-5.3); ABSOLUTE MONOCYTES 0.5 thou/uL (0.0-1.2); ABSOLUTE NEUTROPHILS 4.1 thou/uL (1.6-8.1); BASOPHILS 1.2 %; EOSINOPHILS 2.7 %; HEMATOCRIT 35.4 % (37.0-47.0); HEMOGLOBIN 11.9 gm/dL (12.0-15.0); LYMPHOCYTES 11.9 %; MCH 30.9 pg (26.0-34.0); MCHC 33.8 g/dL (28.0-37.0); MCV 91.4 fL (80.0-100.0); MONOCYTES 9.8 %; MPV 8.3 fl. (7.2-11.1); NUCLEATED RBCS 0 /100WBC; PLATELET COUNT* 183 thou/uL (150-400); POLYS 74.4 %; RBC 3.87 mil/uL (4.20-5.00); RDW-CV 13.2 % (10.5-14.5); WBC 5.6 thou/uL (4.0-11.0)
[2021-03-30 10:41] LABS: ALBUMIN 3.4 g/dL (3.4-5.0); ALKALINE PHOSPHATASE 120 U/L (46-116); ANION GAP 4 mmol/L (7-16); BUN 52 mg/dL (7-18); CALCIUM 9.9 mg/dL (8.5-10.1); CHLORIDE 89 mmol/L (98-107); CHOLESTEROL 155 mg/dL (<200); CO2 31 mmol/L (21-32); CREATININE 1.7 mg/dL (0.6-1.3); GLUCOSE 125 mg/dL (70-99); HDL CHOLESTEROL 49 mg/dL (>40); LDL CHOLESTEROL 100 mg/dL (<100); MAGNESIUM 1.5 mg/dL (1.8-2.4); POTASSIUM 4.5 mmol/L (3.5-5.1); SGOT 42 U/L (15-37); SGPT 30 U/L (30-65); SODIUM 124 mmol/L (136-145); TC:HDL 3.2 Ratio (Not establshd); TOTAL BILIRUBIN 0.8 mg/dL (<0.1-1.0); TOTAL PROTEIN 7.4 g/dL (6.4-8.2); TRIGLYCERIDE 31 mg/dL (<150); VLDL 6 mg/dL (<40)
[2021-03-30 10:44] LABS: SERUM ASSESSMENT Clear
[2021-03-30 15:54] LABS: % SATURATION 24 % (20-39); IRON 77 ug/dL (50-175)
== END ==
LOC: M.LAB 09:53
PROVIDERS: ATTEND Family Medicine
DX: I12.9 Hypertensive chronic kidney disease with stage 1 through stage 4 chronic kidney disease, or unspecified chronic kidney disease (principal); E11.22 Type 2 diabetes mellitus with diabetic chronic kidney disease; N18.30 Chronic kidney disease, stage 3 unspecified; D64.9 Anemia, unspecified; Z79.4 Long term (current) use of insulin